=== PATIENT | female | born 1950 | race Hispanic/Latino ===

== ENCOUNTER → 2024-06-02 | Outpatient (CLI) | payer MEDICARE ==
[~2024-06-02] MED LIST: ALBUMIN (HUMAN) 25% 200 ML IV ONE; LOSA25TA41 PO; METF-444 PO; PANT40TA54 PO; SITA100T12 PO
[2024-06-02 08:53] LABS: BASOPHILS # (AUTO) 0.06 K/uL (0.00-0.20); BASOPHILS % (AUTO) 1.1 % (0.0-5.0); EOSINOPHILS # (AUTO) 0.09 K/uL (0.00-0.70); EOSINOPHILS % (AUTO) 1.6 % (0.0-8.0); HEMATOCRIT 31.1 % (36-48); IMMATURE GRANULOCYTE ABSOLUTE 0.02 K/uL (0-1); LYMPHOCYTES # (AUTO) 0.7 K/uL (1.0-4.8); LYMPHOCYTES % (AUTO) 11.8 % (21.0-51.0); MEAN CORPUSCULAR HEMOGLOBIN 30.3 pg (27.0-33.0); MEAN CORPUSCULAR HGB CONC 31.2 g/dL (32.0-36.0); MEAN CORPUSCULAR VOLUME 97.2 fL (79-99); MONOCYTES # (AUTO) 0.6 K/uL (0.1-1.0); MONOCYTES % (AUTO) 11.2 % (3.0-13.0); NEUTROPHILS # (AUTO) 4.2 K/uL (1.8-7.7); NEUTROPHILS % (AUTO) 73.9 % (40.0-77.0); PLATELET COUNT (AUTO) 347 K/uL (130-400); RED CELL DISTRIBUTION WIDTH 14.4 % (11.0-15.5); WHITE BLOOD COUNT (AUTO) 5.7 K/uL (4.8-10.8)
[2024-06-02 09:02] LABS: INR 1.08 (0.85-1.15); PROTHROMBIN TIME 11.6 SEC (9.6-11.6)
[2024-06-02 09:04] LABS: PARTIAL THROMBOPLASTIN TIME 26.1 SEC (26.3-35.5)
[2024-06-02 09:05] LABS: ALBUMIN 2.3 g/dL (3.5-5.0); BILIRUBIN,TOTAL 0.4 mg/dL (0.2-1.0); CREATININE 0.8 mg/dL (0.5-1.0); POTASSIUM 4.3 mmol/L (3.5-5.1); TOTAL PROTEIN, SERUM 6.6 g/dL (6.0-8.3)
[2024-06-02 15:12] LABS: ALBUMIN,BODY FLUID 0.8 g/dL
[2024-06-02 15:22] LABS: BODY FLUID RBC 52 /cu. mm.; BODY FLUID WBC 278 /cu. mm.
[2024-06-02 15:24] LABS: APPEARANCE BODY FLUID CLEAR (CLEAR); COLOR,BODY FLUID YELLOW (LT YELLOW); SPECIMENTYPE,BODY FLUID ASCITES; TOTAL VOLUME,BODY FLUID 11100 mL
[2024-06-02 16:23] LABS: BF LYMPHOCYTE 11 %; BF MACROPHAGE 83; BF OTHER CELLS 1; BF TOTAL CELLS COUNTED 100
== END | disposition home or self-care (01) ==
LOC: RAH 07:43
PROVIDERS: ATTEND Internal Medicine Gastroenterology
DX: R18.8 Other ascites (principal); I10 Essential (primary) hypertension; E78.5 Hyperlipidemia, unspecified; E03.9 Hypothyroidism, unspecified; E11.9 Type 2 diabetes mellitus without complications; M19.90 Unspecified osteoarthritis, unspecified site; K21.9 Gastro-esophageal reflux disease without esophagitis; R19.4 Change in bowel habit; R14.0 Abdominal distension (gaseous); K76.9 Liver disease, unspecified; K58.1 Irritable bowel syndrome with constipation; I85.10 Secondary esophageal varices without bleeding; K44.9 Diaphragmatic hernia without obstruction or gangrene; D50.9 Iron deficiency anemia, unspecified; K64.1 Second degree hemorrhoids; K74.60 Unspecified cirrhosis of liver; Z86.010 Personal history of colon polyps; K92.1 Melena; Z79.82 Long term (current) use of aspirin; Z90.49 Acquired absence of other specified parts of digestive tract; Z90.710 Acquired absence of both cervix and uterus
CPT/HCPCS: 49083; 84157; 80053; 85025; 89051; 85610; 85730; 87071; 87205; 82042; 36415; 88305; 88112; P9046; C1729; 96365

== ENCOUNTER → 2024-06-20 | Outpatient (CLI) | payer MEDICARE ==
[~2024-06-20] MED LIST changes: -ALBUMIN (HUMAN) 25% 200 ML IV ONE
[2024-06-20 11:50] LABS: CREATININE 0.9 mg/dL (0.5-1.0); POTASSIUM 4.5 mmol/L (3.5-5.1)
== END | disposition home or self-care (01) ==
LOC: LAB 11:10
PROVIDERS: ATTEND Internal Medicine Gastroenterology
DX: R18.8 Other ascites (principal)
CPT/HCPCS: 36415; 80048

== ENCOUNTER → 2024-06-26 | Outpatient (CLI) | payer MEDICARE ==
[~2024-06-26] MED LIST changes: +ALBUMIN (HUMAN) 25% 200 ML IV ONE
[2024-06-26 13:18] LABS: ALBUMIN,BODY FLUID 0.9 g/dL
[2024-06-26 13:37] LABS: BODY FLUID RBC 0 /cu. mm.; BODY FLUID WBC 288 /cu. mm.
[2024-06-26 13:42] LABS: APPEARANCE BODY FLUID CLEAR (CLEAR); COLOR,BODY FLUID YELLOW (LT YELLOW); SPECIMENTYPE,BODY FLUID ASCITES; TOTAL VOLUME,BODY FLUID 11000 mL
[2024-06-26 14:30] LABS: BF LYMPHOCYTE 22 %; BF MACROPHAGE 12; BF MESOTHELIAL 49 %; BF MONOCYTE 14 %; BF TOTAL CELLS COUNTED 100
== END | disposition home or self-care (01) ==
LOC: RAH 07:57
PROVIDERS: ATTEND Internal Medicine Gastroenterology
DX: R18.8 Other ascites (principal); I10 Essential (primary) hypertension; E03.9 Hypothyroidism, unspecified; E78.5 Hyperlipidemia, unspecified; E11.9 Type 2 diabetes mellitus without complications; M19.90 Unspecified osteoarthritis, unspecified site; R19.4 Change in bowel habit; K74.60 Unspecified cirrhosis of liver; R14.0 Abdominal distension (gaseous); K85.10 Biliary acute pancreatitis without necrosis or infection; I85.10 Secondary esophageal varices without bleeding; K44.9 Diaphragmatic hernia without obstruction or gangrene; K21.00 Gastro-esophageal reflux disease with esophagitis, without bleeding; D50.9 Iron deficiency anemia, unspecified; K64.1 Second degree hemorrhoids; K92.1 Melena; Z86.010 Personal history of colon polyps; Z90.49 Acquired absence of other specified parts of digestive tract; Z90.710 Acquired absence of both cervix and uterus; Z79.82 Long term (current) use of aspirin; Z79.899 Other long term (current) drug therapy
CPT/HCPCS: 49083; 84157; 89051; 87071; 87076; 87205; 82042; 88305; 88112; P9046; C1729

== ENCOUNTER → 2024-07-10 | Outpatient (CLI) | payer MEDICARE ==
[2024-07-10 07:57] LABS: BASOPHILS # (AUTO) 0.07 K/uL (0.00-0.20); BASOPHILS % (AUTO) 1.2 % (0.0-5.0); EOSINOPHILS # (AUTO) 0.14 K/uL (0.00-0.70); EOSINOPHILS % (AUTO) 2.3 % (0.0-8.0); HEMATOCRIT 28.9 % (36-48); IMMATURE GRANULOCYTE ABSOLUTE 0.04 K/uL (0-1); LYMPHOCYTES # (AUTO) 0.5 K/uL (1.0-4.8); LYMPHOCYTES % (AUTO) 8.1 % (21.0-51.0); MEAN CORPUSCULAR HEMOGLOBIN 29.8 pg (27.0-33.0); MEAN CORPUSCULAR HGB CONC 32.2 g/dL (32.0-36.0); MEAN CORPUSCULAR VOLUME 92.6 fL (79-99); MONOCYTES # (AUTO) 0.6 K/uL (0.1-1.0); MONOCYTES % (AUTO) 9.5 % (3.0-13.0); NEUTROPHILS # (AUTO) 4.7 K/uL (1.8-7.7); NEUTROPHILS % (AUTO) 78.2 % (40.0-77.0); PLATELET COUNT (AUTO) 316 K/uL (130-400); RED BLOOD CELL COUNT(AUTO) 3.12 MIL/uL (4.00-5.50); RED CELL DISTRIBUTION WIDTH 15.1 % (11.0-15.5)
[2024-07-10 08:09] LABS: INR 1.05 (0.85-1.15); PROTHROMBIN TIME 11.3 SEC (9.6-11.6)
[2024-07-10 08:10] LABS: PARTIAL THROMBOPLASTIN TIME 25.8 SEC (26.3-35.5)
[2024-07-10 08:11] LABS: ALBUMIN 2.4 g/dL (3.5-5.0); BILIRUBIN,TOTAL 0.5 mg/dL (0.2-1.0); CREATININE 0.9 mg/dL (0.5-1.0); POTASSIUM 4.6 mmol/L (3.5-5.1); TOTAL PROTEIN, SERUM 6.4 g/dL (6.0-8.3)
[2024-07-10 16:33] LABS: BODY FLUID RBC 307 /cu. mm.; BODY FLUID WBC 175 /cu. mm.
[2024-07-10 16:37] LABS: SPECIMENTYPE,BODY FLUID ASCITES
[2024-07-10 16:38] LABS: APPEARANCE BODY FLUID SLIGHTLY CLOUDY (CLEAR); COLOR,BODY FLUID YELLOW (LT YELLOW); TOTAL VOLUME,BODY FLUID 6700 mL
[2024-07-10 17:31] LABS: BF EOSINOPHIL 1 %; BF LYMPHOCYTE 32 %; BF MACROPHAGE 57; BF TOTAL CELLS COUNTED 100
== END | disposition home or self-care (01) ==
LOC: RAH 07:21
PROVIDERS: ATTEND Internal Medicine Gastroenterology
DX: R18.8 Other ascites (principal); K74.60 Unspecified cirrhosis of liver; I85.10 Secondary esophageal varices without bleeding; R19.4 Change in bowel habit; K58.1 Irritable bowel syndrome with constipation; K64.1 Second degree hemorrhoids; K21.00 Gastro-esophageal reflux disease with esophagitis, without bleeding; K44.9 Diaphragmatic hernia without obstruction or gangrene; D50.9 Iron deficiency anemia, unspecified; I10 Essential (primary) hypertension; E78.5 Hyperlipidemia, unspecified; E03.9 Hypothyroidism, unspecified; E11.9 Type 2 diabetes mellitus without complications; Z90.49 Acquired absence of other specified parts of digestive tract; Z90.710 Acquired absence of both cervix and uterus; Z86.010 Personal history of colon polyps; Z79.82 Long term (current) use of aspirin; Z79.899 Other long term (current) drug therapy
CPT/HCPCS: 49083; 80053; 85025; 89051; 85610; 85730; 36415; P9046; C1729; 96365

== ENCOUNTER → 2024-08-09 | Outpatient (CLI) | payer MEDICARE ==
[2024-08-09 08:28] LABS: BASOPHILS # (AUTO) 0.07 K/uL (0.00-0.20); BASOPHILS % (AUTO) 1.1 % (0.0-5.0); EOSINOPHILS # (AUTO) 0.11 K/uL (0.00-0.70); EOSINOPHILS % (AUTO) 1.7 % (0.0-8.0); HEMATOCRIT 28.5 % (36-48); IMMATURE GRANULOCYTE ABSOLUTE 0.01 K/uL (0-1); LYMPHOCYTES # (AUTO) 0.5 K/uL (1.0-4.8); LYMPHOCYTES % (AUTO) 7.8 % (21.0-51.0); MEAN CORPUSCULAR HEMOGLOBIN 29.2 pg (27.0-33.0); MEAN CORPUSCULAR HGB CONC 31.6 g/dL (32.0-36.0); MEAN CORPUSCULAR VOLUME 92.5 fL (79-99); MONOCYTES # (AUTO) 0.6 K/uL (0.1-1.0); MONOCYTES % (AUTO) 9.3 % (3.0-13.0); NEUTROPHILS # (AUTO) 5.2 K/uL (1.8-7.7); NEUTROPHILS % (AUTO) 79.9 % (40.0-77.0); PLATELET COUNT (AUTO) 357 K/uL (130-400); RED BLOOD CELL COUNT(AUTO) 3.08 MIL/uL (4.00-5.50); RED CELL DISTRIBUTION WIDTH 14.9 % (11.0-15.5); WHITE BLOOD COUNT (AUTO) 6.5 K/uL (4.8-10.8)
[2024-08-09 08:39] LABS: ALBUMIN 2.7 g/dL (3.5-5.0); BILIRUBIN,TOTAL 0.5 mg/dL (0.2-1.0); CREATININE 0.9 mg/dL (0.5-1.0); POTASSIUM 4.6 mmol/L (3.5-5.1)
[2024-08-09 08:49] LABS: INR 1.05 (0.85-1.15); PROTHROMBIN TIME 11.3 SEC (9.6-11.6)
[2024-08-09 08:50] LABS: PARTIAL THROMBOPLASTIN TIME 25.5 SEC (26.3-35.5)
[2024-08-09 15:04] LABS: APPEARANCE BODY FLUID SLIGHTLY CLOUDY (CLEAR); COLOR,BODY FLUID YELLOW (LT YELLOW); SPECIMENTYPE,BODY FLUID ASCITES; TOTAL VOLUME,BODY FLUID 6700 mL
[2024-08-09 15:16] LABS: BODY FLUID RBC 113 /cu. mm.; BODY FLUID WBC 225 /cu. mm.
[2024-08-09 18:17] LABS: BF LYMPHOCYTE 20 %; BF MACROPHAGE 71; BF OTHER CELLS 1; BF TOTAL CELLS COUNTED 100
== END | disposition home or self-care (01) ==
LOC: RAH 07:42
PROVIDERS: ATTEND Internal Medicine Gastroenterology
DX: R18.8 Other ascites (principal); K74.60 Unspecified cirrhosis of liver; I85.10 Secondary esophageal varices without bleeding; R19.4 Change in bowel habit; K58.1 Irritable bowel syndrome with constipation; K64.1 Second degree hemorrhoids; D50.9 Iron deficiency anemia, unspecified; I10 Essential (primary) hypertension; E03.9 Hypothyroidism, unspecified; E78.5 Hyperlipidemia, unspecified; E11.9 Type 2 diabetes mellitus without complications; M19.90 Unspecified osteoarthritis, unspecified site; Z86.010 Personal history of colon polyps; Z90.49 Acquired absence of other specified parts of digestive tract; Z90.710 Acquired absence of both cervix and uterus; Z79.82 Long term (current) use of aspirin; Z79.899 Other long term (current) drug therapy
CPT/HCPCS: 49083; 80053; 85025; 89051; 85610; 85730; 36415; P9046; C1729

== ENCOUNTER 2024-08-18 12:29 | Inpatient (IN) | payer MEDICARE ==
[~2024-08-18] VITALS: Ht 157.5 cm; Wt 58.5 kg
[2024-08-18] VITALS (8 sets, daily range): BP systolic 95–107; BP diastolic 41–57; PULSE 76–99; RESP 18–19; TEMP 98.1–98.3; O2SAT 96–99
[~2024-08-18 12:29] MED LIST changes: -ALBUMIN (HUMAN) 25% 200 ML IV ONE
[2024-08-18 13:13] LABS: BASOPHILS # (AUTO) 0.06 K/uL (0.00-0.20); EOSINOPHILS % (AUTO) 1.6 % (0.0-8.0); HEMATOCRIT 24.4 % (36-48); IMMATURE GRANULOCYTE ABSOLUTE 0.03 K/uL (0-1); LYMPHOCYTES # (AUTO) 0.7 K/uL (1.0-4.8); LYMPHOCYTES % (AUTO) 10.8 % (21.0-51.0); MEAN CORPUSCULAR HEMOGLOBIN 29.1 pg (27.0-33.0); MONOCYTES # (AUTO) 0.6 K/uL (0.1-1.0); MONOCYTES % (AUTO) 10.5 % (3.0-13.0); NEUTROPHILS # (AUTO) 4.6 K/uL (1.8-7.7); NEUTROPHILS % (AUTO) 75.6 % (40.0-77.0); PLATELET COUNT (AUTO) 312 K/uL (130-400); RED BLOOD CELL COUNT(AUTO) 2.68 MIL/uL (4.00-5.50); RED CELL DISTRIBUTION WIDTH 14.8 % (11.0-15.5); WHITE BLOOD COUNT (AUTO) 6.1 K/uL (4.8-10.8)
[2024-08-18 13:20] LABS: CREATININE 0.9 mg/dL (0.5-1.0); POTASSIUM 4.5 mmol/L (3.5-5.1)
[2024-08-18 13:22] LABS: INR 1.03 (0.85-1.15); PROTHROMBIN TIME 11.1 SEC (9.6-11.6)
[2024-08-18 13:23] LABS: PARTIAL THROMBOPLASTIN TIME 24.2 SEC (26.3-35.5)
[2024-08-18 13:25] LABS: ALBUMIN 2.7 g/dL (3.5-5.0); BILIRUBIN,DIRECT 0.1 mg/dL (0.0-0.3); BILIRUBIN,TOTAL 0.3 mg/dL (0.2-1.0); TOTAL PROTEIN, SERUM 6.3 g/dL (6.0-8.3)
[2024-08-18 13:38] LABS: SARS-CoV-2, RNA, NAAT NEGATIVE SARS CoV-2 (NEGATIVE)
[2024-08-18 13:41] LABS: INFLUENZA TYPE A Negative For Type A (NEGATIVE); INFLUENZA TYPE B Negative For Type B (NEGATIVE)
[2024-08-18 14:34] LABS: APPEARANCE,URINE CLEAR (CLEAR); BILIRUBIN,URINE NEGATIVE (NEGATIVE); COLOR,URINE LIGHT-YELLOW (YELLOW); GLUCOSE, URINE (UA) NEGATIVE (NEGATIVE); KETONES,URINE NEGATIVE (NEGATIVE); LEUKOCYTE ESTERASE ,URINE NEGATIVE Leu/uL (NEGATIVE); NITRATE,URINE NEGATIVE (NEGATIVE); OCCULT BLOOD,URINE NEGATIVE (NEGATIVE); PROTEIN,URINE NEGATIVE (NEGATIVE); UROBILINOGEN,URINE 0.2 mg/dL (0.2-1.0)
[2024-08-18 14:36] LABS: ADD UA MICROSCOPIC NO
[2024-08-18] MEDS ORDERED: FERR-82 PO (14:40)
[2024-08-18] MEDS ORDERED: VITA-328 PO (14:40)
[2024-08-18] MEDS ORDERED: FURO20TA4 PO (14:40)
[2024-08-18] MEDS ORDERED: SPIR25TA6 PO (14:40)
[2024-08-18] MEDS ORDERED: LOSA25TA41 PO (14:40)
[2024-08-18] MEDS ORDERED: ASPI-1197 PO (14:40)
[2024-08-18] MEDS ORDERED: METO5TAB2 PO (14:40)
[2024-08-18] MEDS ORDERED: LEVO50CA4 PO (14:40)
[2024-08-18] MEDS ORDERED: OMEP40CA21 PO (14:40)
[2024-08-18] MEDS: 0.9%NACL 1000ML 1,000 ML IV ONE (14:58)
[2024-08-18] MEDS ORDERED: cefTRIAXone 1G VIAL 1 GM in 0.9%NACL 50ML 50 ML IV SCH (15:30)
[2024-08-18] MEDS ORDERED: LACTULOSE 20 GM/30 ML UDCUP PO PRN (15:30)
[2024-08-18] MEDS ORDERED: acetaMINOPHEN WITH coDEINE 1 TAB TAB PO PRN (15:30)
[2024-08-18] MEDS ORDERED: DiphenhydrAMINE HCL 25 MG CAPSULE PO PRN (15:30)
[2024-08-18] MEDS ORDERED: guaiFENesin-DM 200/20MG 10ML PO PRN (15:30)
[2024-08-18] MEDS ORDERED: NITROGLYCERIN 0.4 MG SL TAB SL PRN (15:30)
[2024-08-18] MEDS ORDERED: MAG/ALUM/SIMETH 30 ML UDCUP PO PRN (15:30)
[2024-08-18] MEDS ORDERED: DEXTROSE 50%-WATER 50 ML DISP.SYRIN IV PRN (15:30)
[2024-08-18] MEDS ORDERED: GLUCAGON 1MG KIT 1 MG ML IM PRN (15:30)
[2024-08-18] MEDS ORDERED: hydrALAZine 20MG/ML VIAL IV PRN (15:30)
[2024-08-18] MEDS ORDERED: acetaMINOPHEN 325 MG TAB PO PRN (15:30)
[2024-08-18] MEDS ORDERED: ondanSETRON 4MG INJ IV PRN (15:30)
[2024-08-18] MEDS: cefTRIAXone 1G VIAL IVPB SCH (15:59)
[2024-08-18] MEDS: AZITHROMYCIN 500MG+NS 250ML 250 ML IV SCH (16:22)
[2024-08-18] MEDS: 0.9%NACL 1000ML 1,000 ML IV SCH (16:23)
[2024-08-18] MEDS: INSULIN humuLIN R 100 UNIT/ML 3ML SQ SCH (16:29)
[2024-08-18 17:01] LABS: HEMOGLOBIN A1C 4.7 % (4.0-6.0)
[2024-08-18] MEDS: IpraTROPium/alBUTERol SULFATE 3 ML SOLUTION IH SCH (19:26)
[2024-08-18] MEDS: PANTOPrazole 40 MG/VIAL IVP SCH (19:56)
[2024-08-18 21:17] LABS: HEMATOCRIT 23.3 % (36-48)
[2024-08-19] VITALS (12 sets, daily range): BP systolic 92–117; BP diastolic 48–55; PULSE 74–109; RESP 18–20; TEMP 97.9–98.5; O2SAT 98–99
[2024-08-19 05:29] LABS: HEMATOCRIT 21.8 % (36-48)
[2024-08-19 07:47] LABS: BASOPHILS # (AUTO) 0.05 K/uL (0.00-0.20); BASOPHILS % (AUTO) 1.2 % (0.0-5.0); EOSINOPHILS # (AUTO) 0.14 K/uL (0.00-0.70); EOSINOPHILS % (AUTO) 3.2 % (0.0-8.0); HEMATOCRIT 21.9 % (36-48); IMMATURE GRANULOCYTE ABSOLUTE 0.01 K/uL (0-1); LYMPHOCYTES # (AUTO) 0.5 K/uL (1.0-4.8); LYMPHOCYTES % (AUTO) 11.8 % (21.0-51.0); MEAN CORPUSCULAR HEMOGLOBIN 29.4 pg (27.0-33.0); MEAN CORPUSCULAR HGB CONC 31.5 g/dL (32.0-36.0); MEAN CORPUSCULAR VOLUME 93.2 fL (79-99); MONOCYTES # (AUTO) 0.5 K/uL (0.1-1.0); MONOCYTES % (AUTO) 11.1 % (3.0-13.0); NEUTROPHILS # (AUTO) 3.1 K/uL (1.8-7.7); NEUTROPHILS % (AUTO) 72.5 % (40.0-77.0); PLATELET COUNT (AUTO) 266 K/uL (130-400); RED BLOOD CELL COUNT(AUTO) 2.35 MIL/uL (4.00-5.50); WHITE BLOOD COUNT (AUTO) 4.3 K/uL (4.8-10.8)
[2024-08-19 07:54] LABS: MAGNESIUM 1.9 mg/dL (1.80-2.40); POTASSIUM 4.6 mmol/L (3.5-5.1)
[2024-08-19] MEDS: VITAMIN B COMPLEX 1 CAPSULE PO SCH (08:55)
[2024-08-19] MEDS: FERROUS SULFATE 325 MG TABLET.DR PO SCH (08:55)
[2024-08-19] MEDS: MAGNESIUM 2GM PREMIX 50ML 50 ML IV ONE (08:55)
[2024-08-19] MEDS: metoCLOPRAmide 5 MG TABLET PO SCH (08:55)
[2024-08-19] MEDS: levoTHYROxine 50 MCG TABLET PO SCH (08:55)
[2024-08-19 09:35] LABS: HEMATOCRIT 24.1 % (36-48)
[2024-08-19 21:45] LABS: HEMATOCRIT 23.3 % (36-48)
[2024-08-20] VITALS (16 sets, daily range): BP systolic 102–122; BP diastolic 49–70; PULSE 85–103; RESP 17–20; TEMP 97.8–98.7; O2SAT 97–99
[2024-08-20 01:58] LABS: HEMATOCRIT 23.6 % (36-48)
[2024-08-20 05:18] LABS: CREATININE 0.9 mg/dL (0.5-1.0); POTASSIUM 4.5 mmol/L (3.5-5.1)
[2024-08-20 05:19] LABS: % IRON SATURATION 17.3 % (22-44)
[2024-08-20 05:48] LABS: BASOPHILS # (AUTO) 0.06 K/uL (0.00-0.20); BASOPHILS % (AUTO) 1.2 % (0.0-5.0); EOSINOPHILS % (AUTO) 3.9 % (0.0-8.0); IMMATURE GRANULOCYTE ABSOLUTE 0.02 K/uL (0-1); LYMPHOCYTES # (AUTO) 0.6 K/uL (1.0-4.8); MEAN CORPUSCULAR HEMOGLOBIN 29.2 pg (27.0-33.0); MEAN CORPUSCULAR HGB CONC 31.4 g/dL (32.0-36.0); MEAN CORPUSCULAR VOLUME 93.2 fL (79-99); MONOCYTES # (AUTO) 0.6 K/uL (0.1-1.0); MONOCYTES % (AUTO) 12.2 % (3.0-13.0); NEUTROPHILS # (AUTO) 3.7 K/uL (1.8-7.7); NEUTROPHILS % (AUTO) 71.3 % (40.0-77.0); PLATELET COUNT (AUTO) 252 K/uL (130-400); RED BLOOD CELL COUNT(AUTO) 2.36 MIL/uL (4.00-5.50); RED CELL DISTRIBUTION WIDTH 15.3 % (11.0-15.5); WHITE BLOOD COUNT (AUTO) 5.2 K/uL (4.8-10.8)
[2024-08-20] MEDS: SODIUM CHLORIDE 3% FOR INHALATION 4 ML/AMP VIAL.NEB IH ONE ×3 (07:21→18:51)
[2024-08-20] MEDS ORDERED: SOD FERRIC GLUC COMPLEX/SUC 125 MG in 0.9%NACL 100ML 100 ML IV SCH (11:30)
[2024-08-20] MEDS: [UNRECOGNIZED DRUG - REMARK] MISC SCH (13:00)
[2024-08-20] MEDS ORDERED: COMPOUND IV MISC 1 EACH IVSOLN MISC PRN (15:00)
[2024-08-20] MEDS: LOPERAMIDE HCL 2 MG CAP PO PRN (16:43)
[2024-08-20] MEDS: SOD FERRIC GLUC COMPLEX/SUC 125 MG in 0.9%NACL 100ML 100 ML IV SCH (20:20)
[2024-08-21] VITALS (11 sets, daily range): BP systolic 103–122; BP diastolic 48–68; PULSE 85–101; RESP 16–18; TEMP 97.8–98.9; O2SAT 95–98
[2024-08-21] MEDS ORDERED: PEG 3350/NA SULF,BICARB,CL/KCL 4000 ML SOLN PO ONE (16:00)
[2024-08-22] VITALS (30 sets, daily range): BP systolic 102–148; BP diastolic 54–89; PULSE 67–99; RESP 16–18; TEMP 97.3–98.3; O2SAT 98–99
[2024-08-22] MEDS: levoTHYROxine 50 MCG TABLET PO SCH (04:54)
[2024-08-22 05:12] LABS: BASOPHILS # (AUTO) 0.07 K/uL (0.00-0.20); BASOPHILS % (AUTO) 1.4 % (0.0-5.0); EOSINOPHILS # (AUTO) 0.29 K/uL (0.00-0.70); EOSINOPHILS % (AUTO) 5.9 % (0.0-8.0); HEMATOCRIT 26.3 % (36-48); IMMATURE GRANULOCYTE ABSOLUTE 0.02 K/uL (0-1); LYMPHOCYTES # (AUTO) 0.6 K/uL (1.0-4.8); LYMPHOCYTES % (AUTO) 11.6 % (21.0-51.0); MEAN CORPUSCULAR HEMOGLOBIN 28.6 pg (27.0-33.0); MEAN CORPUSCULAR HGB CONC 31.2 g/dL (32.0-36.0); MEAN CORPUSCULAR VOLUME 91.6 fL (79-99); MONOCYTES # (AUTO) 0.6 K/uL (0.1-1.0); MONOCYTES % (AUTO) 12.2 % (3.0-13.0); NEUTROPHILS # (AUTO) 3.4 K/uL (1.8-7.7); NEUTROPHILS % (AUTO) 68.5 % (40.0-77.0); PLATELET COUNT (AUTO) 250 K/uL (130-400); RED BLOOD CELL COUNT(AUTO) 2.87 MIL/uL (4.00-5.50); RED CELL DISTRIBUTION WIDTH 17.1 % (11.0-15.5); WHITE BLOOD COUNT (AUTO) 4.9 K/uL (4.8-10.8)
[2024-08-22 05:34] LABS: CREATININE 0.8 mg/dL (0.5-1.0)
[2024-08-22] MEDS ORDERED: proPOFol 10 MG/ML 20ML VIAL IV ONE (12:23)
[2024-08-22] MEDS ORDERED: LIDOCAINE PF 100MG/5ML (2%) SYRINGE 5ML ONE (12:23)
[2024-08-22] MEDS: DEXTROSE 50%-WATER 50 ML DISP.SYRIN IV ONE (13:25)
[2024-08-22] MEDS ORDERED: SIMETHICONE 40 MG/0.6 ML ML PO PRN (14:30)
[2024-08-22] MEDS: SIMETHICONE 80 MG TAB.CHEW PO PRN (14:39)
[2024-08-22] MEDS: BENZOCAINE/MENTH/CETYLPYRD CL 1 EACH LOZENGE MM PRN (14:39)
[2024-08-22] MEDS: hydroCORTISONE 25 MG SUPPOSITORY PR SCH (20:15)
[2024-08-23] VITALS (7 sets, daily range): BP systolic 112–129; BP diastolic 59–74; PULSE 81–94; RESP 16–18; TEMP 98.1–98.7; O2SAT 97–98
[2024-08-23 06:04] LABS: HEMATOCRIT 27.1 % (36-48); MEAN CORPUSCULAR HEMOGLOBIN 27.8 pg (27.0-33.0); MEAN CORPUSCULAR HGB CONC 30.3 g/dL (32.0-36.0); MEAN CORPUSCULAR VOLUME 91.9 fL (79-99); PLATELET COUNT (AUTO) 284 K/uL (130-400); RED BLOOD CELL COUNT(AUTO) 2.95 MIL/uL (4.00-5.50); RED CELL DISTRIBUTION WIDTH 17.2 % (11.0-15.5); WHITE BLOOD COUNT (AUTO) 5.6 K/uL (4.8-10.8)
[2024-08-23 06:20] LABS: ALBUMIN 2.3 g/dL (3.5-5.0); BILIRUBIN,TOTAL 0.4 mg/dL (0.2-1.0); CREATININE 0.9 mg/dL (0.5-1.0); POTASSIUM 4.1 mmol/L (3.5-5.1); TOTAL PROTEIN, SERUM 5.8 g/dL (6.0-8.3)
[2024-08-23] MEDS ORDERED: LACT PO (14:31)
[2024-08-23] MEDS ORDERED: PANT40TA55 PO (14:31)
== END 2024-08-23 15:40 | disposition home or self-care (01) | DRG 432 ==
LOC: EDH 12:29 → EDHIP 15:29 → UNDOADMIN 15:29 → 3CH 17:55
PROVIDERS: ADMIT Internal Medicine; ATTEND Internal Medicine
PROC: 0W3P8ZZ Control Bleeding in Gastrointestinal Tract, Via Natural or Artificial Opening Endoscopic (ICD-10-PCS; 2024-08-18)
PROC: 0DJD8ZZ Inspection of Lower Intestinal Tract, Via Natural or Artificial Opening Endoscopic (ICD-10-PCS; 2024-08-18)
PROC: 30233N1 Transfusion of Nonautologous Red Blood Cells into Peripheral Vein, Percutaneous Approach (ICD-10-PCS; principal; 2024-08-20)
PROC: 0DB68ZX Excision of Stomach, Via Natural or Artificial Opening Endoscopic, Diagnostic (ICD-10-PCS; 2024-08-22)
PROC: 06L38CZ Occlusion of Esophageal Vein with Extraluminal Device, Via Natural or Artificial Opening Endoscopic (ICD-10-PCS; 2024-08-22)
DX: K74.60 Unspecified cirrhosis of liver (principal); J18.9 Pneumonia, unspecified organism; I85.10 Secondary esophageal varices without bleeding; K76.6 Portal hypertension; E87.1 Hypo-osmolality and hyponatremia; N17.9 Acute kidney failure, unspecified; K64.9 Unspecified hemorrhoids; D50.9 Iron deficiency anemia, unspecified; K58.9 Irritable bowel syndrome, unspecified; I12.9 Hypertensive chronic kidney disease with stage 1 through stage 4 chronic kidney disease, or unspecified chronic kidney disease; E11.22 Type 2 diabetes mellitus with diabetic chronic kidney disease; N18.9 Chronic kidney disease, unspecified; K64.8 Other hemorrhoids; K31.89 Other diseases of stomach and duodenum; K59.00 Constipation, unspecified; Z90.710 Acquired absence of both cervix and uterus; Z90.49 Acquired absence of other specified parts of digestive tract
CPT/HCPCS: 36415; 36430; 43233; 43239; 43244; 71045; 76700; 80048; 80053; 80076; 81003; 82270; 82948; 83036; 83540; 83550; 83735; 83880; 84145; 84300; 84484; 85014; 85018; 85025; 85027; 85610; 85730; 86850; 86900; 86901; 86923; 87040; 87635; 87804; 88305; 88312; 93005; 94640; 94664; 96360; A4606; G0378; J0456; J0696; J2002; J2470; J2704; J2916; J3475; J7030; J7070; P9016; A4215; A4222; A4223; A4620; J3490

== ENCOUNTER → 2024-08-30 | Outpatient (CLI) | payer MEDICARE ==
[~2024-08-30] MED LIST changes: +ALBUMIN (HUMAN) 25% 200 ML IV ONE; +ASPI-1197 PO; +FERR-82 PO; +FURO20TA4 PO; +LACT PO; +LEVO50CA4 PO; -LOSA25TA41 PO; -METF-444 PO; +METO5TAB2 PO; -PANT40TA54 PO; +PANT40TA55 PO; -SITA100T12 PO; +SPIR25TA6 PO; +VITA-328 PO
[2024-08-30 15:14] LABS: BODY FLUID RBC 600 /cu. mm.; BODY FLUID WBC 159 /cu. mm.
[2024-08-30 15:21] LABS: APPEARANCE BODY FLUID SLIGHTLY CLOUDY (CLEAR); COLOR,BODY FLUID YELLOW (LT YELLOW); SPECIMENTYPE,BODY FLUID ASCITES; TOTAL VOLUME,BODY FLUID 8000 mL
[2024-08-30 16:44] LABS: BF EOSINOPHIL 1 %; BF LYMPHOCYTE 68 %; BF MACROPHAGE 11; BF OTHER CELLS 2; BF TOTAL CELLS COUNTED 100
== END | disposition home or self-care (01) ==
LOC: CANPRECLI → RAH 09:35
PROVIDERS: ATTEND Internal Medicine Gastroenterology
DX: R18.8 Other ascites (principal); K74.60 Unspecified cirrhosis of liver; I85.10 Secondary esophageal varices without bleeding; R19.4 Change in bowel habit; K58.1 Irritable bowel syndrome with constipation; K64.1 Second degree hemorrhoids; R11.0 Nausea; K21.00 Gastro-esophageal reflux disease with esophagitis, without bleeding; K44.9 Diaphragmatic hernia without obstruction or gangrene; D50.9 Iron deficiency anemia, unspecified; Z86.0100 Personal history of colon polyps, unspecified; Z79.01 Long term (current) use of anticoagulants; Z90.710 Acquired absence of both cervix and uterus; Z98.890 Other specified postprocedural states; Z79.899 Other long term (current) drug therapy
CPT/HCPCS: 49083; 89051; P9046; C1729

== ENCOUNTER → 2024-09-07 | Outpatient (CLI) | payer MEDICARE ==
[2024-09-07 14:36] LABS: APPEARANCE BODY FLUID CLEAR (CLEAR); COLOR,BODY FLUID YELLOW (LT YELLOW); SPECIMENTYPE,BODY FLUID ASCITES; TOTAL VOLUME,BODY FLUID 6500 mL
[2024-09-07 14:37] LABS: BODY FLUID RBC 111 /cu. mm.; BODY FLUID WBC 185 /cu. mm.
[2024-09-07 15:46] LABS: BF LYMPHOCYTE 54 %; BF MACROPHAGE 24; BF MONOCYTE 3 %; BF TOTAL CELLS COUNTED 100
== END | disposition home or self-care (01) ==
LOC: CANPRECLI → RAH 08:17
PROVIDERS: ATTEND Internal Medicine Gastroenterology
DX: R18.8 Other ascites (principal)
CPT/HCPCS: 49083; 89051; P9046; C1729; 96365

== ENCOUNTER → 2024-09-18 | Outpatient (CLI) | payer MEDICARE ==
[2024-09-18 09:16] LABS: BASOPHILS # (AUTO) 0.06 K/uL (0.00-0.20); BASOPHILS % (AUTO) 1.1 % (0.0-5.0); EOSINOPHILS # (AUTO) 0.15 K/uL (0.00-0.70); EOSINOPHILS % (AUTO) 2.7 % (0.0-8.0); HEMATOCRIT 27.2 % (36-48); IMMATURE GRANULOCYTE ABSOLUTE 0.02 K/uL (0-1); LYMPHOCYTES # (AUTO) 0.5 K/uL (1.0-4.8); MEAN CORPUSCULAR HEMOGLOBIN 29.3 pg (27.0-33.0); MEAN CORPUSCULAR HGB CONC 30.9 g/dL (32.0-36.0); MEAN CORPUSCULAR VOLUME 94.8 fL (79-99); MONOCYTES # (AUTO) 0.6 K/uL (0.1-1.0); MONOCYTES % (AUTO) 10.3 % (3.0-13.0); NEUTROPHILS # (AUTO) 4.4 K/uL (1.8-7.7); NEUTROPHILS % (AUTO) 77.5 % (40.0-77.0); PLATELET COUNT (AUTO) 249 K/uL (130-400); RED BLOOD CELL COUNT(AUTO) 2.87 MIL/uL (4.00-5.50); RED CELL DISTRIBUTION WIDTH 16.6 % (11.0-15.5); WHITE BLOOD COUNT (AUTO) 5.6 K/uL (4.8-10.8)
[2024-09-18 09:32] LABS: INR 1.04 (0.85-1.15); PROTHROMBIN TIME 11.2 SEC (9.6-11.6)
[2024-09-18 09:33] LABS: PARTIAL THROMBOPLASTIN TIME 24.5 SEC (26.3-35.5)
[2024-09-18 09:34] LABS: ALBUMIN 2.6 g/dL (3.5-5.0); BILIRUBIN,TOTAL 0.4 mg/dL (0.2-1.0); CREATININE 0.9 mg/dL (0.5-1.0); POTASSIUM 4.1 mmol/L (3.5-5.1); TOTAL PROTEIN, SERUM 6.6 g/dL (6.0-8.3)
[2024-09-18 14:22] LABS: BODY FLUID RBC 101 /cu. mm.; BODY FLUID WBC 111 /cu. mm.
[2024-09-18 16:20] LABS: APPEARANCE BODY FLUID SLIGHTLY CLOUDY (CLEAR); COLOR,BODY FLUID YELLOW (LT YELLOW); SPECIMENTYPE,BODY FLUID ASCITES; TOTAL VOLUME,BODY FLUID 4200 mL
[2024-09-18 19:45] LABS: BF EOSINOPHIL 1 %; BF LYMPHOCYTE 52 %; BF MACROPHAGE 30; BF MONOCYTE 6 %; BF OTHER CELLS 1; BF TOTAL CELLS COUNTED 100
== END | disposition home or self-care (01) ==
LOC: RAH 07:39
PROVIDERS: ATTEND Internal Medicine Gastroenterology
DX: R18.8 Other ascites (principal); K74.60 Unspecified cirrhosis of liver; I85.10 Secondary esophageal varices without bleeding; R19.4 Change in bowel habit; K58.1 Irritable bowel syndrome with constipation; K64.1 Second degree hemorrhoids; K21.00 Gastro-esophageal reflux disease with esophagitis, without bleeding; K44.9 Diaphragmatic hernia without obstruction or gangrene; D50.9 Iron deficiency anemia, unspecified; Z79.82 Long term (current) use of aspirin; Z86.0100 Personal history of colon polyps, unspecified; Z90.710 Acquired absence of both cervix and uterus; Z79.899 Other long term (current) drug therapy
CPT/HCPCS: 49083; 80053; 85025; 89051; 85610; 85730; 36415; P9046; C1729; 96365

== ENCOUNTER → 2024-10-25 | Outpatient (CLI) | payer MEDICARE ==
[~2024-10-25] MED LIST changes: -ALBUMIN (HUMAN) 25% 200 ML IV ONE
--- NOTE | 2024-10-26 10:28 | HMCSR ---
APPROVED REPORT EXAM: Two-dimensional and M-mode echocardiogram with Doppler and color Doppler. INDICATION ICD: r06.09,r94.31, r60.9 RISK FACTORS Hypertension Hyperlipidemia Diabetes 2D Dimensions RVDd4.1 cmLVEF(%)51.0 (>50%)LVED Vol(simp.)81.0 mL IVSd1.0 (0.7-1.1cm)FS(%)26 %LVES Vol(simp.)37.0 mL LVDd3.9 (3.8-5.6cm)LA (2D)4.0 (1.6-4.0cm)LVEF(%, simp.)54 % PWd1.0 (0.7-1.1cm)Ao Root(2D)2.7 (2.0-3.7cm)LA ESV INDEX (BP)64.27 mL/m2 LVDs2.9 (2.5-4.0cm)LVOT diam2.0 (1.8-2.4cm) Deformation Strain Apical 4-23.1 % Apical 2-18.5 % Apical 3-21.0 % Global Strain-20.8 % Aortic Valve AoV Vmax1.6 m/Arielle Peak GR10.4 mmHgLVOT Vmax1.4 m/s AoV VTI0.4 mAo Mean GR6.2 mmHgLVOT VTI0.36 m WHITNEY (VMAX)3.1 cm2Al P1/2T369 msAVA (VTI) 3.1 cm2 Mitral Valve MV E Oriy865.8 cm/sDECEL Lfgu838 msMV Peak GR9 mmHg MV A Lrrs587.3 cm/sP 1/2 T89 msMV Mean GR4 mmHg E/A ratio1.0MVA (PHT)2.5 cm2MVA (VTI)2.4 cm2 MR Max PG113 mmHgMR Mean PG75 mmHgMR WNA490 cm2 TDI E/E' Ftdjnz34.9E/E' Pvtegqa50.6 Pulmonary Valve PV Vmax0.8 m/sPV VTI0.21 mPV Mean GR2 mmHg PV Peak GR2.7 mmHgPI End Aliya. Kwan 0.8 cm/s Tricuspid Valve TR Vmax2.7 m/sRAP (EST) 8 zvKjDQGJ54.9 mmHg TR Peak GR29.9 mmHg Left Ventricle Left ventricular cavity size is normal. There is normal LV segmental wall motion. There is borderline concentric left ventricular hypertrophy. LVEF is 50-55%. GLS rate is -20.8%. Stage II diastolic dysf unction. Right Ventricle The right ventricle is borderline dilated. The right ventricular systolic function is normal. Atria The left atrium is severely dilated. The right atrium is moderately dilated. Aortic Valve Aortic valve is trileaflet. The aortic valve is mildly thickened but opens well. Trace to mild aortic regurgitation. There is no aortic valvular stenosis. Mitral Valve Mitral annular calcification is moderate. The mitral valve is mildly thickened but opens well. Mitral regurgitation is mild. Calculated mitral valve area is 2.4 cm2 with maximum pressure gradient of 9 m mHg and mean pressure gradient of 4 mmHg. Tricuspid Valve The tricuspid valve leaflets appear normal. There is mild tricuspid regurgitation. Right ventricular systolic pressure is estimated at 30-40 mmHg. Pulmonic Valve Pulmonic valve is not well visualized. There is no pulmonic valvular regurgitation. Great Vessels The aortic root is normal in size. IVC is not well visualized. Pericardium No pericardial effusion. Conclusion LVEF is 50-55%. GLS rate is -20.8%. There is normal LV segmental wall motion. Stage II diastolic dysfunction. The left atrium is severely dilated. Aortic valve is trileaflet. The aortic valve is mildly thickened but opens well. Trace to mild aortic regurgitation. Calculated mitral valve area is 2.4 cm2 with maximum pressure gradient of 9 mmHg and mean pressure gr adient of 4 mmHg. No pericardial effusion. The aortic root is normal in size.
== END | disposition home or self-care (01) ==
LOC: SHCH 13:10
PROVIDERS: ATTEND Internal Medicine Cardiovascular Disease
DX: I08.3 Combined rheumatic disorders of mitral, aortic and tricuspid valves (principal); I11.9 Hypertensive heart disease without heart failure; R94.31 Abnormal electrocardiogram [ECG] [EKG]; R06.09 Other forms of dyspnea; R60.9 Edema, unspecified; E11.9 Type 2 diabetes mellitus without complications; E78.5 Hyperlipidemia, unspecified
CPT/HCPCS: 93306; 93356

== ENCOUNTER → 2024-11-14 | Outpatient (CLI) | payer MEDICARE ==
[~2024-11-14] MED LIST changes: +ALBUMIN HUMAN 25% 200 ML IV ONE
--- NOTE | 2024-11-14 09:10 | NUR ---
U/S GD PARACENTESIS TOLERATED PROCEDURE. PERFORMED BY DR Fuentes ARCE. 9.0 LITERS OF YELLOW CLOUDY FLUID REMOVED. PUNCTURE SITE TO RLQ. SPECIMEN SENT TO LAB. ALBUMIN 25% 50 GRAMS GIVEN IV. END OF PROCEDURE AT 0850. DRESSING DRY AND INTACT. NO BLEEDING NOTED. DISCHARGE INSTRUCTIONS GIVEN. VERBALIZED UNDERSTANDING. TIMOTEO PAIN. DISCHARGE VIA WHEELCHAIR. DENIES PAIN. A&O.
--- NOTE | 2024-11-14 09:32 | HMCIMG ---
ULTRASOUND GUIDED PARACENTESIS: INDICATION: Ascites TECHNIQUE: Informed consent was obtained. Timeout performed. All elements of maximal sterile barrier technique, including hand hygiene and cutaneous antisepsis were used. Patient was placed supine. Right lower quadrant was prepped and draped in sterile fashion. Local anesthesia was applied. Then, under ultrasound guidance, a 5F centesis needle was advanced through the abdominal wall and into a pocket of fluid in the peritoneum. It yielded 9.0 L of fluid. The catheter was removed and sterile dressing applied. Blood pressure monitoring was performed during the procedure. Complications: None Blood loss: <5 mL. IMPRESSION: Successful ultrasound guided paracentesis.
[2024-11-14 13:22] LABS: APPEARANCE BODY FLUID CLEAR (CLEAR); COLOR,BODY FLUID YELLOW (LT YELLOW); SPECIMENTYPE,BODY FLUID ASCITES; TOTAL VOLUME,BODY FLUID 9000 mL
[2024-11-14 13:23] LABS: BODY FLUID RBC 0 /cu. mm.; BODY FLUID WBC 101 /cu. mm.
[2024-11-14 14:07] LABS: BF LYMPHOCYTE 31 %; BF MESOTHELIAL 31 %; BF MONOCYTE 29 %; BF TOTAL CELLS COUNTED 100
== END | disposition home or self-care (01) ==
LOC: RAH 07:46
PROVIDERS: ATTEND Internal Medicine
DX: R18.8 Other ascites (principal); K74.60 Unspecified cirrhosis of liver; I85.10 Secondary esophageal varices without bleeding; R19.4 Change in bowel habit; K58.1 Irritable bowel syndrome with constipation; K64.1 Second degree hemorrhoids; K44.9 Diaphragmatic hernia without obstruction or gangrene; Z86.0100 Personal history of colon polyps, unspecified; K21.00 Gastro-esophageal reflux disease with esophagitis, without bleeding; D50.9 Iron deficiency anemia, unspecified; I10 Essential (primary) hypertension; E78.5 Hyperlipidemia, unspecified; E03.9 Hypothyroidism, unspecified; E11.9 Type 2 diabetes mellitus without complications; M19.90 Unspecified osteoarthritis, unspecified site; Z90.49 Acquired absence of other specified parts of digestive tract; Z90.710 Acquired absence of both cervix and uterus; Z79.82 Long term (current) use of aspirin; Z79.899 Other long term (current) drug therapy
CPT/HCPCS: 49083; 89051; P9046; C1729; 96365

== ENCOUNTER → 2024-11-29 | Outpatient (CLI) | payer MEDICARE ==
--- NOTE | 2024-11-29 10:00 | NUR ---
U/S GD PARACENTESIS PROCEDURE PERFORMED BY DR Ara SHERWOOD. PUNCTURE SITE RLQ AND PATIENT TOLERATED PROCEDURE WELL. TOTAL REMOVED 7 LITERS OF CLOUDY YELLOW FLUID. ALBUMIN 25% 50 GRAMS IV GIVEN DURING PROCEDURE. SPECIMEN SENT TO LAB. END OF PROCEDURE AT 09. CATHETER REMOVED AND DRESSING APPLIED. NO BLEEDING NOTED. DISCHARGE INSTRUCTIONS GIVEN TO PATIENT AND VERBALIZED UNDERSTANDING. DISCHARGED VIA W/C AT 1000. AAO X3 WITH NO C/O PAIN.
--- NOTE | 2024-11-29 11:39 | HMCIMG ---
US ABDOMINAL PARACENTESIS IR HISTORY: Ascites COMPARISON: None TECHNIQUE: Informed consent was obtained. Risks and benefits were explained to the patient. A timeout was performed. Patient was prepped and draped in a sterile fashion. Local anesthetics was given as required. Under ultrasound guidance, ascites fluid was localized. Paracentesis was performed. FINDINGS: 7 L of yellowish fluid was aspirated. Less than 2 cc blood loss is noted. Patient tolerated procedure without complication. Patient left the department in good condition. IMPRESSION: 1. Uncomplicated ultrasound guidance paracentesis.
[2024-11-29 14:18] LABS: BODY FLUID RBC 27 /cu. mm.; BODY FLUID WBC 82 /cu. mm.; SPECIMENTYPE,BODY FLUID ASCITES
[2024-11-29 14:19] LABS: APPEARANCE BODY FLUID CLEAR (CLEAR); COLOR,BODY FLUID LT YELLOW (LT YELLOW); TOTAL VOLUME,BODY FLUID 7000 mL
[2024-11-29 14:24] LABS: BF LYMPHOCYTE 42 %; BF MACROPHAGE 17; BF MESOTHELIAL 4 %; BF TOTAL CELLS COUNTED 100
== END | disposition home or self-care (01) ==
LOC: RAH 07:42
PROVIDERS: ATTEND Internal Medicine
DX: R18.8 Other ascites (principal); E78.5 Hyperlipidemia, unspecified; I10 Essential (primary) hypertension; K74.60 Unspecified cirrhosis of liver; I85.00 Esophageal varices without bleeding; D50.9 Iron deficiency anemia, unspecified; E03.9 Hypothyroidism, unspecified; E11.9 Type 2 diabetes mellitus without complications; D64.9 Anemia, unspecified; K21.9 Gastro-esophageal reflux disease without esophagitis; Z79.82 Long term (current) use of aspirin; Z79.899 Other long term (current) drug therapy; Z90.49 Acquired absence of other specified parts of digestive tract; Z98.890 Other specified postprocedural states
CPT/HCPCS: 49083; 89051; P9046; C1729

== ENCOUNTER → 2024-12-13 | Outpatient (CLI) | payer MEDICARE ==
[2024-12-13 13:28] LABS: BASOPHILS # (AUTO) 0.04 K/uL (0.00-0.20); BASOPHILS % (AUTO) 0.8 % (0.0-5.0); EOSINOPHILS # (AUTO) 0.17 K/uL (0.00-0.70); EOSINOPHILS % (AUTO) 3.2 % (0.0-8.0); HEMATOCRIT 25.4 % (36-48); IMMATURE GRANULOCYTE ABSOLUTE 0.02 K/uL (0-1); LYMPHOCYTES # (AUTO) 0.5 K/uL (1.0-4.8); LYMPHOCYTES % (AUTO) 9.5 % (21.0-51.0); MEAN CORPUSCULAR HEMOGLOBIN 23.8 pg (27.0-33.0); MEAN CORPUSCULAR HGB CONC 28.7 g/dL (32.0-36.0); MEAN CORPUSCULAR VOLUME 82.7 fL (79-99); MONOCYTES # (AUTO) 0.6 K/uL (0.1-1.0); MONOCYTES % (AUTO) 11.6 % (3.0-13.0); NEUTROPHILS # (AUTO) 3.9 K/uL (1.8-7.7); NEUTROPHILS % (AUTO) 74.5 % (40.0-77.0); PLATELET COUNT (AUTO) 303 K/uL (130-400); RED BLOOD CELL COUNT(AUTO) 3.07 MIL/uL (4.00-5.50); RED CELL DISTRIBUTION WIDTH 18.5 % (11.0-15.5); WHITE BLOOD COUNT (AUTO) 5.3 K/uL (4.8-10.8)
[2024-12-13 13:37] LABS: INR 1.04 (0.85-1.15); PROTHROMBIN TIME 11.6 SEC (9.6-11.6)
[2024-12-13 13:38] LABS: PARTIAL THROMBOPLASTIN TIME 25.5 SEC (26.3-35.5)
[2024-12-13 13:40] LABS: ALBUMIN 2.4 g/dL (3.5-5.0); BILIRUBIN,TOTAL 0.2 mg/dL (0.2-1.0); CREATININE 0.9 mg/dL (0.5-1.0); POTASSIUM 4.1 mmol/L (3.5-5.1); TOTAL PROTEIN, SERUM 6.4 g/dL (6.0-8.3)
--- NOTE | 2024-12-13 13:50 | NUR ---
U/S GD PARACENTESIS TOLERATED PROCEDURE. PERFORMED BY DR Ara SHERWOOD. 7.4 LITERS OF YELLOW CLOUDY ASCITES FLUID REMOVED AND SENT TO LAB. ALBUMIN 25% 50 GRAMS GIVEN IV. PUNCTURE SITE TO RLQ. END OF PROCEDURE AT 1330. DRESSING DRY AND INTACT. DISCHARGE INSTRUCTIONS GIVEN. VERBALIZED UNDERSTANDING. DISCHARGE VIA AMBULATOR WITH SPOUSE. DENIES PAIN. A&O.
[2024-12-13 15:33] LABS: APPEARANCE BODY FLUID SLIGHTLY CLOUDY (CLEAR); COLOR,BODY FLUID YELLOW (LT YELLOW); SPECIMENTYPE,BODY FLUID ASCITES; TOTAL VOLUME,BODY FLUID 7400 mL
--- NOTE | 2024-12-13 15:33 | HMCIMG ---
US ABDOMINAL PARACENTESIS IR HISTORY: No additional history given. COMPARISON: None TECHNIQUE: Informed consent was obtained. Risks and benefits were explained to the patient. A timeout was performed. Patient was prepped and draped in a sterile fashion. Local anesthetics was given as required. Under ultrasound guidance, ascites fluid was localized. Paracentesis was performed. FINDINGS: 7.4 L of ascites fluid was aspirated. Less than 2 cc blood loss is noted. Patient tolerated procedure without complication. Patient left the department in good condition. IMPRESSION: 1. Uncomplicated ultrasound guidance paracentesis.
[2024-12-13 15:37] LABS: BODY FLUID RBC 280 /cu. mm.; BODY FLUID WBC 54 /cu. mm.
[2024-12-13 16:03] LABS: BF EOSINOPHIL 1 %; BF LYMPHOCYTE 23 %; BF MACROPHAGE 62; BF MONOCYTE 4 %; BF OTHER CELLS 2; BF TOTAL CELLS COUNTED 100
== END | disposition home or self-care (01) ==
LOC: RAH 12:31
PROVIDERS: ATTEND Internal Medicine
DX: R18.8 Other ascites (principal); K74.60 Unspecified cirrhosis of liver; I10 Essential (primary) hypertension; E78.5 Hyperlipidemia, unspecified; E03.9 Hypothyroidism, unspecified; E11.9 Type 2 diabetes mellitus without complications; M19.90 Unspecified osteoarthritis, unspecified site; K21.9 Gastro-esophageal reflux disease without esophagitis; K58.1 Irritable bowel syndrome with constipation; Z86.2 Personal history of diseases of the blood and blood-forming organs and certain disorders involving the immune mechanism; Z79.82 Long term (current) use of aspirin; Z79.01 Long term (current) use of anticoagulants; Z79.890 Hormone replacement therapy; Z98.891 History of uterine scar from previous surgery; Z90.710 Acquired absence of both cervix and uterus; Z90.49 Acquired absence of other specified parts of digestive tract; Z79.899 Other long term (current) drug therapy; Z98.890 Other specified postprocedural states
CPT/HCPCS: 49083; 80053; 85025; 89051; 85610; 85730; 36415; P9046; C1729; 96365

== ENCOUNTER → 2025-01-10 | Outpatient (CLI) | payer MEDICARE ==
[~2025-01-10] MED LIST changes: +CARV3.12 PO; +OMEP40CA21 PO
--- NOTE | 2025-01-10 09:40 | NUR ---
U/S GD PARACENTESIS TOLERATED PROCEDURE. PERFORMED BY DR Malcolm PINO. PUNCTURE SITE TO RLQ. 6.0 LITER OF YELLOW CLOUDY FLUID REMOVED AND SENT TO LAB. ALBUMIN 25% 50 GRAMS GIVEN. END OF PROCEDURE 0920. DRESSING DRY AND INTACT. NO BLEEDING NOTED. DISCHARGE INSTRUCTIONS GIVEN. VERBALIZED UNDERSTANDING. DISCHARGE VIA AMBULATORY WITH SPOUSE. A&O. DENIES PAIN.
[2025-01-10] MEDS: ALBUMIN HUMAN 25% 200 ML IV ONE (09:42)
--- NOTE | 2025-01-10 10:43 | HMCIMG ---
US ABDOMINAL PARACENTESIS IR REASON: ASCITES TECHNIQUE: Paracentesis was performed with ultrasound guidance. The puncture site was selected in the Right lower quadrant and overlying skin prepped and draped in a sterile fashion. 1% Xylocaine infiltration was performed. Catheter was placed in the fluid using trocar technique. 6 L were removed. Fluid sample was submitted for laboratory evaluation. The patient showed no evidence of complication during the procedure. IMPRESSION: 1. Ultrasound-guided paracentesis.
[2025-01-10 14:09] LABS: BODY FLUID RBC 331 /cu. mm.; BODY FLUID WBC 170 /cu. mm.
[2025-01-10 14:19] LABS: APPEARANCE BODY FLUID CLEAR (CLEAR); COLOR,BODY FLUID YELLOW (LT YELLOW); SPECIMENTYPE,BODY FLUID ASCITES; TOTAL VOLUME,BODY FLUID 6000 mL
[2025-01-10 15:53] LABS: BF EOSINOPHIL 1 %; BF LYMPHOCYTE 74 %; BF MESOTHELIAL 16 %; BF MONOCYTE 3 %; BF TOTAL CELLS COUNTED 100
== END | disposition home or self-care (01) ==
LOC: RAH 07:50
PROVIDERS: ATTEND Internal Medicine
DX: R18.8 Other ascites (principal); K74.60 Unspecified cirrhosis of liver; I10 Essential (primary) hypertension; E78.5 Hyperlipidemia, unspecified; I85.10 Secondary esophageal varices without bleeding; E03.9 Hypothyroidism, unspecified; E11.9 Type 2 diabetes mellitus without complications; M19.90 Unspecified osteoarthritis, unspecified site; K21.00 Gastro-esophageal reflux disease with esophagitis, without bleeding; D50.9 Iron deficiency anemia, unspecified; K58.1 Irritable bowel syndrome with constipation; Z90.49 Acquired absence of other specified parts of digestive tract; Z90.710 Acquired absence of both cervix and uterus; Z98.891 History of uterine scar from previous surgery; Z79.01 Long term (current) use of anticoagulants; Z79.890 Hormone replacement therapy; Z86.0100 Personal history of colon polyps, unspecified; Z79.899 Other long term (current) drug therapy; Z98.890 Other specified postprocedural states
CPT/HCPCS: 49083; 89051; P9046; C1729; 96365

== ENCOUNTER 2025-01-18 06:56 | Day surgery (SDC) | payer MEDICARE ==
[~2025-01-18] VITALS: Ht 157.5 cm; Wt 57.2 kg
[2025-01-18] VITALS (10 sets, daily range): BP systolic 100–114; BP diastolic 50–61; PULSE 65–71; RESP 14–20; TEMP 97–97.3
[~2025-01-18 06:56] MED LIST changes: -ALBUMIN HUMAN 25% 200 ML IV ONE; -LACT PO; -LEVO50CA4 PO; +LEVO50CA5 PO; -PANT40TA55 PO
[2025-01-18] MEDS: 0.9%NACL 1000ML 1,000 ML IV ONE (07:40)
[2025-01-18] MEDS ORDERED: proPOFol 10 MG/ML 20ML VIAL IV ONE (09:24)
[2025-01-18] MEDS ORDERED: SUCR1TAB2 PO (10:17)
--- NOTE | 2025-01-18 10:40 | NUR ---
Full and complete discharge instructions given to Patient and Family both verbally and in writing. Explained GI procedure precautions and follow up. All questions answered. PIV removed with catheter tip intact. Home with Family W/C to POV.
== END 2025-01-18 10:40 | disposition home or self-care (01) ==
LOC: ENDO 06:56 → DAH 06:56 → ENDO 10:40
PROVIDERS: ATTEND Internal Medicine Gastroenterology
DX: D50.9 Iron deficiency anemia, unspecified (principal); K22.89 Other specified disease of esophagus; I85.10 Secondary esophageal varices without bleeding; I10 Essential (primary) hypertension; E78.5 Hyperlipidemia, unspecified; K31.89 Other diseases of stomach and duodenum; K76.6 Portal hypertension; E11.9 Type 2 diabetes mellitus without complications; R18.8 Other ascites; K74.60 Unspecified cirrhosis of liver; K64.1 Second degree hemorrhoids; K21.00 Gastro-esophageal reflux disease with esophagitis, without bleeding; K44.9 Diaphragmatic hernia without obstruction or gangrene; Z86.0100 Personal history of colon polyps, unspecified; E03.9 Hypothyroidism, unspecified; M19.90 Unspecified osteoarthritis, unspecified site; K58.9 Irritable bowel syndrome, unspecified; Z90.49 Acquired absence of other specified parts of digestive tract; Z90.710 Acquired absence of both cervix and uterus; Z79.82 Long term (current) use of aspirin; Z79.899 Other long term (current) drug therapy
CPT/HCPCS: 43239; 82948 ×2; 43270; J7030 ×2; J2704; A4620; A4215 ×2; A4223; A4222; A4221; A4663; A4606; 43255; J3490

== ENCOUNTER → 2025-02-22 | Outpatient (CLI) | payer MEDICARE ==
[~2025-02-22] MED LIST changes: +ALBUMIN HUMAN 25% 200 ML IV ONE; +SUCR1TAB2 PO
[2025-02-22] MEDS: ALBUMIN HUMAN 25% 200 ML IV ONE (10:17)
--- NOTE | 2025-02-22 10:40 | NUR ---
U/S GD PARACENTESIS TOLERATED PROCEDURE. PERFORMED BY DR Ara SHERWOOD. 8.0 LITERS OF YELLOW CLEAR ASCITES FLUID REMOVED. ALBUMIN 25% 50 GRAMS GIVEN IV. PUNCTURE SITE TO LLQ. END OF PROCEDURE AT 1020. DRESSING DRY AND INTACT. NO BLEEDING NOTED. DISCHARGE INSTRUCTIONS GIVEN. VERBALIZED UNDERSTANDING. DISCHARGE VIA AMBULATORY. DENIES PAIN. A&O.
--- NOTE | 2025-02-22 14:10 | HMCIMG ---
US ABDOMINAL PARACENTESIS IR HISTORY: Ascites COMPARISON: None TECHNIQUE: Informed consent was obtained. Risks and benefits were explained to the patient. A timeout was performed. Patient was prepped and draped in a sterile fashion. Local anesthetics was given as required. Under ultrasound guidance, ascites fluid was localized. Paracentesis was performed. FINDINGS: 8 L of yellowish fluid was aspirated. Less than 2 cc blood loss is noted. Patient tolerated procedure without complication. Patient left the department in good condition. IMPRESSION: 1. Uncomplicated ultrasound guidance paracentesis.
[2025-02-22 15:17] LABS: BODY FLUID RBC 176 /cu. mm.; BODY FLUID WBC 37 /cu. mm.
[2025-02-22 15:37] LABS: APPEARANCE BODY FLUID SLIGHTLY CLOUDY (CLEAR); COLOR,BODY FLUID YELLOW (LT YELLOW); SPECIMENTYPE,BODY FLUID ASCITES; TOTAL VOLUME,BODY FLUID 8000 mL
[2025-02-22 16:24] LABS: BF LYMPHOCYTE 57 %; BF MACROPHAGE 21; BF MONOCYTE 5 %; BF TOTAL CELLS COUNTED 100
== END ==
LOC: RAH 09:28
PROVIDERS: ATTEND Internal Medicine Gastroenterology
DX: R18.8 Other ascites (principal); K74.60 Unspecified cirrhosis of liver; I10 Essential (primary) hypertension; E11.9 Type 2 diabetes mellitus without complications; D50.9 Iron deficiency anemia, unspecified; K21.9 Gastro-esophageal reflux disease without esophagitis; K58.1 Irritable bowel syndrome with constipation; I85.10 Secondary esophageal varices without bleeding; E78.5 Hyperlipidemia, unspecified; E03.9 Hypothyroidism, unspecified; M19.90 Unspecified osteoarthritis, unspecified site; Z86.2 Personal history of diseases of the blood and blood-forming organs and certain disorders involving the immune mechanism; Z90.49 Acquired absence of other specified parts of digestive tract; Z90.710 Acquired absence of both cervix and uterus; Z98.891 History of uterine scar from previous surgery; Z80.9 Family history of malignant neoplasm, unspecified; Z79.899 Other long term (current) drug therapy; Z98.890 Other specified postprocedural states
CPT/HCPCS: 49083; 89051; P9046; C1729; 96365

== ENCOUNTER → 2025-04-06 | Outpatient (CLI) | payer MEDICARE ==
[2025-04-06 09:36] LABS: BASOPHILS # (AUTO) 0.06 K/uL (0.00-0.20); BASOPHILS % (AUTO) 1.3 % (0.0-5.0); EOSINOPHILS # (AUTO) 0.29 K/uL (0.00-0.70); EOSINOPHILS % (AUTO) 6.3 % (0.0-8.0); HEMATOCRIT 28.3 % (36-48); IMMATURE GRANULOCYTE ABSOLUTE 0.02 K/uL (0-1); LYMPHOCYTES # (AUTO) 0.5 K/uL (1.0-4.8); LYMPHOCYTES % (AUTO) 10.6 % (21.0-51.0); MEAN CORPUSCULAR HEMOGLOBIN 27.4 pg (27.0-33.0); MEAN CORPUSCULAR HGB CONC 30.4 g/dL (32.0-36.0); MEAN CORPUSCULAR VOLUME 90.1 fL (79-99); MONOCYTES # (AUTO) 0.4 K/uL (0.1-1.0); MONOCYTES % (AUTO) 9.5 % (3.0-13.0); NEUTROPHILS # (AUTO) 3.3 K/uL (1.8-7.7); NEUTROPHILS % (AUTO) 71.9 % (40.0-77.0); PLATELET COUNT (AUTO) 281 K/uL (130-400); RED BLOOD CELL COUNT(AUTO) 3.14 MIL/uL (4.00-5.50); RED CELL DISTRIBUTION WIDTH 19.7 % (11.0-15.5); WHITE BLOOD COUNT (AUTO) 4.6 K/uL (4.8-10.8)
--- NOTE | 2025-04-06 09:40 | NUR ---
U/S GD PARACENTESIS TOLERATED PROCEDURE. PERFORMED BY DR Fuentes ARCE. PUNCTURE SITE TO RLQ. 6.5 LITERS OF YELLOW CLOUDY FLUID REMOVED AND SENT TO LAB. ALBUMIN 25% 50 GRAMS GIVEN IV. END OF PROCEDURE AT 0920. DRESSING APPLIED NO BLEEDING NOTED. DISCHARGE INSTRUCTIONS GIVEN. VERBALIZED UNDERSTANDING. DISCHARGE VIA AMBULATORY WITH SPOUSE. DENIES PAIN. A&O.
[2025-04-06 09:49] LABS: ALBUMIN 2.4 g/dL (3.5-5.0); BILIRUBIN,TOTAL 0.5 mg/dL (0.2-1.0); CREATININE 0.7 mg/dL (0.5-1.0); POTASSIUM 5.4 mmol/L (3.5-5.1); TOTAL PROTEIN, SERUM 6.9 g/dL (6.0-8.3)
[2025-04-06 09:57] LABS: INR 1.05 (0.85-1.15); PROTHROMBIN TIME 11.1 SEC (9.6-11.6)
[2025-04-06 09:58] LABS: PARTIAL THROMBOPLASTIN TIME 25.8 SEC (26.3-35.5)
[2025-04-06] MEDS: ALBUMIN HUMAN 25% 200 ML IV ONE (10:33)
--- NOTE | 2025-04-06 10:33 | HMCIMG ---
ULTRASOUND GUIDED PARACENTESIS: INDICATION: Ascites TECHNIQUE: Informed consent was obtained. Timeout performed. All elements of maximal sterile barrier technique, including hand hygiene and cutaneous antisepsis were used. Patient was placed supine. Right lower quadrant was prepped and draped in sterile fashion. Local anesthesia was applied. Then, under ultrasound guidance, a 5F centesis needle was advanced through the abdominal wall and into a pocket of fluid in the peritoneum. It yielded 6.5 L of fluid. The catheter was removed and sterile dressing applied. Blood pressure monitoring was performed during the procedure. Complications: None Blood loss: <5 mL. IMPRESSION: Successful ultrasound guided paracentesis.
[2025-04-06 13:54] LABS: APPEARANCE BODY FLUID CLEAR (CLEAR); COLOR,BODY FLUID LT YELLOW (LT YELLOW); SPECIMENTYPE,BODY FLUID ASCITES; TOTAL VOLUME,BODY FLUID 6500 mL
[2025-04-06 14:48] LABS: BODY FLUID RBC 154 /cu. mm.; BODY FLUID WBC 77 /cu. mm.
[2025-04-06 14:57] LABS: BF LYMPHOCYTE 62 %; BF MACROPHAGE 4; BF MONOCYTE 20 %; BF TOTAL CELLS COUNTED 100
== END | disposition home or self-care (01) ==
LOC: RAH 07:47
PROVIDERS: ATTEND Internal Medicine Gastroenterology
DX: R18.8 Other ascites (principal); K74.60 Unspecified cirrhosis of liver; K31.819 Angiodysplasia of stomach and duodenum without bleeding; I85.10 Secondary esophageal varices without bleeding; K59.04 Chronic idiopathic constipation; K58.1 Irritable bowel syndrome with constipation; K64.1 Second degree hemorrhoids; K21.00 Gastro-esophageal reflux disease with esophagitis, without bleeding; K44.9 Diaphragmatic hernia without obstruction or gangrene; E78.5 Hyperlipidemia, unspecified; I10 Essential (primary) hypertension; E03.9 Hypothyroidism, unspecified; E11.9 Type 2 diabetes mellitus without complications; M19.90 Unspecified osteoarthritis, unspecified site; Z86.2 Personal history of diseases of the blood and blood-forming organs and certain disorders involving the immune mechanism; Z90.49 Acquired absence of other specified parts of digestive tract; Z90.710 Acquired absence of both cervix and uterus; Z98.891 History of uterine scar from previous surgery; Z80.1 Family history of malignant neoplasm of trachea, bronchus and lung; Z86.0100 Personal history of colon polyps, unspecified; Z79.899 Other long term (current) drug therapy; Z79.82 Long term (current) use of aspirin; Z79.890 Hormone replacement therapy
CPT/HCPCS: 49083; 80053; 85025; 89051; 85610; 85730; 36415; P9046; C1729; 96365

== ENCOUNTER → 2025-05-07 | Outpatient (CLI) | payer MEDICARE ==
[~2025-05-07] MED LIST changes: -ASPI-1197 PO; +DOCU-116 PO; +FERR-72 PO; -FERR-82 PO; -METO5TAB2 PO; -OMEP40CA21 PO; +PANT40TA54 PO; +PLEC3TAB2 PO; -SUCR1TAB2 PO
[2025-05-07 09:50] LABS: BASOPHILS # (AUTO) 0.07 K/uL (0.00-0.20); BASOPHILS % (AUTO) 1.6 % (0.0-5.0); EOSINOPHILS # (AUTO) 0.37 K/uL (0.00-0.70); EOSINOPHILS % (AUTO) 8.2 % (0.0-8.0); HEMATOCRIT 29.6 % (36-48); IMMATURE GRANULOCYTE ABSOLUTE 0.01 K/uL (0-1); LYMPHOCYTES # (AUTO) 0.4 K/uL (1.0-4.8); LYMPHOCYTES % (AUTO) 9.6 % (21.0-51.0); MEAN CORPUSCULAR HEMOGLOBIN 27.5 pg (27.0-33.0); MEAN CORPUSCULAR HGB CONC 31.1 g/dL (32.0-36.0); MEAN CORPUSCULAR VOLUME 88.4 fL (79-99); MONOCYTES # (AUTO) 0.5 K/uL (0.1-1.0); MONOCYTES % (AUTO) 10.9 % (3.0-13.0); NEUTROPHILS # (AUTO) 3.1 K/uL (1.8-7.7); NEUTROPHILS % (AUTO) 69.5 % (40.0-77.0); PLATELET COUNT (AUTO) 291 K/uL (130-400); RED BLOOD CELL COUNT(AUTO) 3.35 MIL/uL (4.00-5.50); RED CELL DISTRIBUTION WIDTH 17.2 % (11.0-15.5); WHITE BLOOD COUNT (AUTO) 4.5 K/uL (4.8-10.8)
[2025-05-07 10:00] LABS: INR 1.12 (0.85-1.15); PROTHROMBIN TIME 11.7 SEC (9.6-11.6)
[2025-05-07 10:10] LABS: ALBUMIN 2.5 g/dL (3.5-5.0); BILIRUBIN,TOTAL 0.5 mg/dL (0.2-1.0); CREATININE 0.9 mg/dL (0.5-1.0); POTASSIUM 4.4 mmol/L (3.5-5.1); TOTAL PROTEIN, SERUM 6.3 g/dL (6.0-8.3)
--- NOTE | 2025-05-07 10:50 | NUR ---
U/S GD PARACENTESIS PROCEDURE PERFORMED BY DR Ara SHERWOOD. PUNCTURE SITE LLQ AND PATIENT TOLERATED PROCEDURE WELL. TOTAL REMOVED 7.2 LITERS OF YELLOW CLOUDY FLUID. ALBUMIN 25% 50 GRAMS IV GIVEN DURING PROCEDURE. SPECIMEN SENT TO LAB. END OF PROCEDURE AT 1030. CATHETER REMOVED AND DRESSING APPLIED. NO BLEEDING NOTED. DISCHARGE INSTRUCTIONS GIVEN TO PATIENT AND VERBALIZED UNDERSTANDING. DISCHARGED VIA AMBULATORY. AAO X3 WITH NO C/O PAIN.
--- NOTE | 2025-05-07 12:31 | HMCIMG ---
US ABDOMINAL PARACENTESIS IR HISTORY: Ascites COMPARISON: None TECHNIQUE: Informed consent was obtained. Risks and benefits were explained to the patient. A timeout was performed. Patient was prepped and draped in a sterile fashion. Local anesthetics was given as required. Under ultrasound guidance, ascites fluid was localized. Ultrasound guidance paracentesis was performed. FINDINGS: 7.2 L of yellowish fluid was aspirated. Less than 2 cc blood loss is noted. Patient tolerated procedure without complication. Patient left the department in good condition. IMPRESSION: 1. Complicated ultrasound guidance paracentesis.
[2025-05-07 13:55] LABS: APPEARANCE BODY FLUID CLEAR (CLEAR); COLOR,BODY FLUID YELLOW (LT YELLOW); SPECIMENTYPE,BODY FLUID ASCITES; TOTAL VOLUME,BODY FLUID 7200 mL
[2025-05-07 14:25] LABS: BODY FLUID RBC 0 /cu. mm.; BODY FLUID WBC 87 /cu. mm.
[2025-05-07] MEDS: ALBUMIN HUMAN 25% 200 ML IV ONE (15:41)
[2025-05-07 18:53] LABS: BF LYMPHOCYTE 44 %; BF MACROPHAGE 32; BF MONOCYTE 2 %; BF TOTAL CELLS COUNTED 100
== END | disposition home or self-care (01) ==
LOC: RAH 08:30
PROVIDERS: ATTEND Internal Medicine Gastroenterology
DX: R18.8 Other ascites (principal); D50.9 Iron deficiency anemia, unspecified; K31.819 Angiodysplasia of stomach and duodenum without bleeding; K74.60 Unspecified cirrhosis of liver; I85.10 Secondary esophageal varices without bleeding; K59.04 Chronic idiopathic constipation; K58.1 Irritable bowel syndrome with constipation; K21.00 Gastro-esophageal reflux disease with esophagitis, without bleeding; K44.9 Diaphragmatic hernia without obstruction or gangrene; I10 Essential (primary) hypertension; E78.5 Hyperlipidemia, unspecified; E03.9 Hypothyroidism, unspecified; M19.90 Unspecified osteoarthritis, unspecified site; Z90.49 Acquired absence of other specified parts of digestive tract; Z90.89 Acquired absence of other organs; Z98.890 Other specified postprocedural states; Z79.82 Long term (current) use of aspirin; Z79.899 Other long term (current) drug therapy; Z86.0100 Personal history of colon polyps, unspecified
CPT/HCPCS: 49083; 80053; 85025; 89051; 85610; 85730; 36415; P9046; C1729; 96365

== ENCOUNTER → 2025-05-21 | Outpatient (CLI) | payer MEDICARE ==
--- NOTE | 2025-05-21 10:40 | NUR ---
U/S GD PARACENTESIS PROCEDURE PERFORMED BY DR Raymundo POWERS. PUNCTURE SITE LLQ AND PATIENT TOLERATED PROCEDURE WELL. TOTAL REMOVED 7.2 LITERS OF YELLOW CLOUDY ASCITES FLUID. ALBUMIN 25% 50 GRAMS IV GIVEN DURING PROCEDURE. SPECIMEN SENT TO LAB. END OF PROCEDURE AT 1020. CATHETER REMOVED AND DRESSING APPLIED. NO BLEEDING NOTED. DISCHARGE INSTRUCTIONS GIVEN TO PATIENT AND VERBALIZED UNDERSTANDING. DISCHARGED VIA AMBULATORY. AAO X3 WITH NO C/O PAIN.
[2025-05-21 13:16] LABS: BODY FLUID RBC 0 /cu. mm.; BODY FLUID WBC 859 /cu. mm.
[2025-05-21 14:20] LABS: APPEARANCE BODY FLUID CLEAR (CLEAR); BF LYMPHOCYTE 58 %; BF MACROPHAGE 6; BF MESOTHELIAL 11 %; BF MONOCYTE 9 %; BF TOTAL CELLS COUNTED 100; COLOR,BODY FLUID YELLOW (LT YELLOW); SPECIMENTYPE,BODY FLUID ASCITES; TOTAL VOLUME,BODY FLUID 7200 mL
--- NOTE | 2025-05-22 16:56 | HMCIMG ---
US ABDOMINAL PARACENTESIS IR REASON: ASCITES TECHNIQUE: Paracentesis was performed with ultrasound guidance. The puncture site was selected in the Right lower quadrant and overlying skin prepped and draped in a sterile fashion. 1% Xylocaine infiltration was performed. Catheter was placed in the fluid using trocar technique. 7.2 L were removed. Fluid sample was submitted for laboratory evaluation. The patient showed no evidence of complication during the procedure. Patient tolerated procedure well. IMPRESSION: 1. Ultrasound-guided paracentesis.
== END | disposition home or self-care (01) ==
LOC: RAH 08:29
PROVIDERS: ATTEND Internal Medicine Gastroenterology
DX: R18.8 Other ascites (principal); K74.60 Unspecified cirrhosis of liver; K31.819 Angiodysplasia of stomach and duodenum without bleeding; I85.10 Secondary esophageal varices without bleeding; D50.9 Iron deficiency anemia, unspecified; K21.9 Gastro-esophageal reflux disease without esophagitis; K59.04 Chronic idiopathic constipation; K58.1 Irritable bowel syndrome with constipation; K44.9 Diaphragmatic hernia without obstruction or gangrene; I10 Essential (primary) hypertension; E78.5 Hyperlipidemia, unspecified; E11.9 Type 2 diabetes mellitus without complications; M19.90 Unspecified osteoarthritis, unspecified site; Z86.0100 Personal history of colon polyps, unspecified; Z90.49 Acquired absence of other specified parts of digestive tract; Z90.710 Acquired absence of both cervix and uterus; Z98.890 Other specified postprocedural states; Z79.82 Long term (current) use of aspirin; Z79.899 Other long term (current) drug therapy
CPT/HCPCS: 49083; 89051; P9046; C1729; 96365

== ENCOUNTER → 2025-06-04 | Outpatient (CLI) | payer MEDICARE ==
--- NOTE | 2025-06-04 10:10 | NUR ---
U/S GD PARACENTESIS PROCEDURE PERFORMED BY DR POWERS. PUNCTURE SITE LLQ AND PATIENT TOLERATED PROCEDURE WELL. TOTAL REMOVED 6.6 LITERS OF YELLOW CLOUDY ASCITES FLUID. ALBUMIN 25% 50 GRAMS IV GIVEN DURING PROCEDURE. SPECIMEN SENT TO LAB. END OF PROCEDURE AT 0950. CATHETER REMOVED AND DRESSING APPLIED. NO BLEEDING NOTED. DISCHARGE INSTRUCTIONS GIVEN TO PATIENT AND VERBALIZED UNDERSTANDING. DISCHARGED VIA AMBULATORY. AAO X3 WITH NO C/O PAIN.
[2025-06-04] MEDS: ALBUMIN HUMAN 25% 200 ML IV ONE (10:54)
[2025-06-04 13:26] LABS: ALBUMIN,BODY FLUID < 0.6 g/dL; TOTAL PROTEIN,BODY FLUID < 2.0 g/dL
[2025-06-04 13:54] LABS: APPEARANCE BODY FLUID CLEAR (CLEAR); COLOR,BODY FLUID LT YELLOW (LT YELLOW); SPECIMENTYPE,BODY FLUID ASCITES; TOTAL VOLUME,BODY FLUID 6600 mL
[2025-06-04 13:56] LABS: BODY FLUID RBC 90 /cu. mm.; BODY FLUID WBC 100 /cu. mm.
--- NOTE | 2025-06-04 14:15 | HMCIMG ---
US ABDOMINAL PARACENTESIS IR REASON: ASCITES TECHNIQUE: Paracentesis was performed with ultrasound guidance. The puncture site was selected in the Right lower quadrant and overlying skin prepped and draped in a sterile fashion. 1% Xylocaine infiltration was performed. Catheter was placed in the fluid using trocar technique. 6.6 L were removed. Fluid sample was submitted for laboratory evaluation. The patient showed no evidence of complication during the procedure. Patient tolerated procedure well. IMPRESSION: 1. Ultrasound-guided paracentesis.
[2025-06-04 15:06] LABS: BF LYMPHOCYTE 85 %; BF MESOTHELIAL 3 %; BF MONOCYTE 4 %; BF NEUTROPHIL 8.0 %; BF TOTAL CELLS COUNTED 100
== END | disposition home or self-care (01) ==
LOC: RAH 08:43
PROVIDERS: ATTEND Internal Medicine Gastroenterology
DX: R18.8 Other ascites (principal); K74.60 Unspecified cirrhosis of liver; I85.10 Secondary esophageal varices without bleeding; D50.9 Iron deficiency anemia, unspecified; K31.819 Angiodysplasia of stomach and duodenum without bleeding; K59.04 Chronic idiopathic constipation; K58.1 Irritable bowel syndrome with constipation; K64.1 Second degree hemorrhoids; K21.9 Gastro-esophageal reflux disease without esophagitis; K44.9 Diaphragmatic hernia without obstruction or gangrene; I10 Essential (primary) hypertension; E78.5 Hyperlipidemia, unspecified; E03.9 Hypothyroidism, unspecified; M19.90 Unspecified osteoarthritis, unspecified site; K58.9 Irritable bowel syndrome, unspecified; Z86.0100 Personal history of colon polyps, unspecified; Z90.49 Acquired absence of other specified parts of digestive tract; Z90.710 Acquired absence of both cervix and uterus; Z98.890 Other specified postprocedural states; Z79.899 Other long term (current) drug therapy
CPT/HCPCS: 49083; 84157; 89051; 87071; 87205; 82042; 88108; 88305; P9046; C1729; 96365

== ENCOUNTER → 2025-06-18 | Outpatient (CLI) | payer MEDICARE ==
[~2025-06-18] MED LIST changes: -ALBUMIN HUMAN 25% 200 ML IV ONE
[2025-06-18] MEDS: ALBUMIN HUMAN 25% 200 ML IV ONE (11:10)
[2025-06-18 11:24] LABS: IMMATURE GRANULOCYTE ABSOLUTE 0.01 K/uL (0-1); NUCLEATED RED BLOOD CELLS 0.0 % (0.0-0.19); PLATELET COUNT (AUTO) 205 K/uL (130-400); RED BLOOD CELL COUNT(AUTO) 2.88 MIL/uL (4.00-5.50); RED CELL DISTRIBUTION WIDTH 18.2 % (11.0-15.5); WHITE BLOOD COUNT (AUTO) 4.3 K/uL (4.8-10.8)
[2025-06-18 11:35] LABS: INR 1.07 (0.85-1.15)
[2025-06-18 11:40] LABS: ASPARTATE AMINOTRANSFERASE 35.0 U/L (10-37); CREATININE 0.8 mg/dL (0.5-1.0); GLOMERULAR FILTR. RATE CALC 78.0 mL/min (>90); GLUCOSE,RANDOM 100.0 mg/dL (70-105); SODIUM SERUM 136.0 mmol/L (136-145); TOTAL PROTEIN, SERUM 6.3 g/dL (6.0-8.3); UREA NITROGEN, BLOOD 22.0 mg/dL (7-18)
--- NOTE | 2025-06-18 11:50 | NUR ---
U/S GD PARACENTESIS PROCEDURE PERFORMED BY DR POWERS. PUNCTURE SITE RLQ AND PATIENT TOLERATED PROCEDURE WELL. TOTAL REMOVED 7.5 LITERS OF YELLOW CLOUDY ASCITES. ALBUMIN 25% 50 GRAMS IV GIVEN DURING PROCEDURE. SPECIMEN SENT TO LAB. END OF PROCEDURE AT 1130. CATHETER REMOVED AND DRESSING APPLIED. NO BLEEDING NOTED. DISCHARGE INSTRUCTIONS GIVEN TO PATIENT AND VERBALIZED UNDERSTANDING. DISCHARGED VIA AMBULATORY. AAO X3 WITH NO C/O PAIN.
[2025-06-18 13:58] LABS: ALBUMIN,BODY FLUID < 0.6 g/dL; TOTAL PROTEIN,BODY FLUID < 2.0 g/dL
[2025-06-18 14:47] LABS: BODY FLUID RBC 227 /cu. mm.; BODY FLUID WBC 22 /cu. mm.
--- NOTE | 2025-06-18 14:58 | HMCIMG ---
US ABDOMINAL PARACENTESIS IR REASON: ASCITES TECHNIQUE: Paracentesis was performed with ultrasound guidance. The puncture site was selected in the Right lower quadrant and overlying skin prepped and draped in a sterile fashion. 1% Xylocaine infiltration was performed. Catheter was placed in the fluid using trocar technique. 7.5 L were removed. Fluid sample was submitted for laboratory evaluation. The patient showed no evidence of complication during the procedure. Patient tolerated procedure well. IMPRESSION: 1. Ultrasound-guided paracentesis.
[2025-06-18 18:16] LABS: BF LYMPHOCYTE 43 %; BF MACROPHAGE 23; BF MESOTHELIAL 3 %; BF MONOCYTE 2 %; BF NEUTROPHIL 28.0 %; BF OTHER CELLS 1; BF TOTAL CELLS COUNTED 100
[2025-06-18 18:17] LABS: APPEARANCE BODY FLUID SLIGHTLY CLOUDY (CLEAR); COLOR,BODY FLUID LT YELLOW (LT YELLOW)
[2025-06-18 18:18] LABS: SPECIMENTYPE,BODY FLUID ASCITES; TOTAL VOLUME,BODY FLUID 7500 mL
== END | disposition home or self-care (01) ==
LOC: RAH 09:38
PROVIDERS: ATTEND Internal Medicine Gastroenterology
DX: R18.8 Other ascites (principal); K31.819 Angiodysplasia of stomach and duodenum without bleeding; D50.9 Iron deficiency anemia, unspecified; K76.0 Fatty (change of) liver, not elsewhere classified; I85.10 Secondary esophageal varices without bleeding; K59.04 Chronic idiopathic constipation; K58.1 Irritable bowel syndrome with constipation; K64.1 Second degree hemorrhoids; K21.9 Gastro-esophageal reflux disease without esophagitis; K44.9 Diaphragmatic hernia without obstruction or gangrene; I10 Essential (primary) hypertension; E03.9 Hypothyroidism, unspecified; E11.9 Type 2 diabetes mellitus without complications; E78.5 Hyperlipidemia, unspecified; M19.90 Unspecified osteoarthritis, unspecified site; Z86.0100 Personal history of colon polyps, unspecified; Z79.899 Other long term (current) drug therapy
CPT/HCPCS: 49083; 84157; 80053; 85025; 89051; 85610; 85730; 87071; 87076; 87205; 82042; 36415; 88108; 88305; P9046; C1729; 96365

== ENCOUNTER → 2025-08-13 | Outpatient (CLI) | payer MEDICARE ==
[~2025-08-13] MED LIST changes: +ALBUMIN HUMAN 25% 200 ML IV ONE
[2025-08-13 11:27] LABS: ALBUMIN,BODY FLUID < 0.6 g/dL; TOTAL PROTEIN,BODY FLUID < 2.0 g/dL
[2025-08-13 11:56] LABS: APPEARANCE BODY FLUID CLEAR (CLEAR); COLOR,BODY FLUID LT YELLOW (LT YELLOW); SPECIMENTYPE,BODY FLUID ASCITES; TOTAL VOLUME,BODY FLUID 8000 mL
[2025-08-13 12:48] LABS: BODY FLUID RBC 182 /cu. mm.; BODY FLUID WBC 55 /cu. mm.
[2025-08-13 12:59] LABS: BF BASOPHIL 1 %; BF LYMPHOCYTE 40 %; BF MACROPHAGE 7; BF MESOTHELIAL 5 %; BF MONOCYTE 11 %; BF NEUTROPHIL 36.0 %; BF TOTAL CELLS COUNTED 100
--- NOTE | 2025-08-14 08:39 | HMCIMG ---
US ABDOMINAL PARACENTESIS IR REASON: ASCITES TECHNIQUE: Paracentesis was performed with ultrasound guidance. The puncture site was selected in the Left lower quadrant and overlying skin prepped and draped in a sterile fashion. 1% Xylocaine infiltration was performed. Catheter was placed in the fluid using trocar technique. 6 L were removed. Fluid sample was submitted for laboratory evaluation. The patient showed no evidence of complication during the procedure. Patient tolerated procedure well IMPRESSION: 1. Ultrasound-guided paracentesis.
== END | disposition home or self-care (01) ==
LOC: RAH 07:51
PROVIDERS: ATTEND Internal Medicine Gastroenterology
DX: R18.8 Other ascites (principal); K74.60 Unspecified cirrhosis of liver
CPT/HCPCS: 49083; 84157; 89051; 87071; 87076; 87205; 82042; 88108; 88305; P9046; C1729

== ENCOUNTER → 2025-08-27 | Outpatient (CLI) | payer MEDICARE ==
--- NOTE | 2025-08-27 10:53 | NUR ---
U/S GD PARACENTESIS PROCEDURE PERFORMED BY DR Raymundo WYNNE. PUNCTURE SITE LLQ AND PATIENT TOLERATED PROCEDURE WELL. TOTAL REMOVED 6.2 LITERS OF CLOUDY YELLOW FLUID. ALBUMIN 25% 50 GRAMS IV GIVEN DURING PROCEDURE. SPECIMEN SENT TO LAB. END OF PROCEDURE AT 1030. CATHETER REMOVED AND DRESSING APPLIED. NO BLEEDING NOTED. DISCHARGE INSTRUCTIONS GIVEN TO PATIENT AND VERBALIZED UNDERSTANDING. DISCHARGED VIA AMBULATION AT 1100. AAO X3 WITH NO C/O PAIN.
[2025-08-27 12:57] LABS: ALBUMIN,BODY FLUID < 0.6 g/dL; TOTAL PROTEIN,BODY FLUID < 2.0 g/dL
[2025-08-27 13:06] LABS: BODY FLUID RBC 221 /cu. mm.; BODY FLUID WBC 141 /cu. mm.
--- NOTE | 2025-08-27 13:08 | HMCIMG ---
US ABDOMINAL PARACENTESIS IR REASON: ASCITES TECHNIQUE: Paracentesis was performed with ultrasound guidance. The puncture site was selected in the Left lower quadrant and overlying skin prepped and draped in a sterile fashion. 1% Xylocaine infiltration was performed. Catheter was placed in the fluid using trocar technique. 6.2 L were removed. Fluid sample was submitted for laboratory evaluation. The patient showed no evidence of complication during the procedure. Patient tolerated procedure well. IMPRESSION: 1. Ultrasound-guided paracentesis.
[2025-08-27 13:33] LABS: APPEARANCE BODY FLUID CLEAR (CLEAR); COLOR,BODY FLUID LT YELLOW (LT YELLOW); SPECIMENTYPE,BODY FLUID ASCITES; TOTAL VOLUME,BODY FLUID 6200 mL
[2025-08-27 13:47] LABS: BF LYMPHOCYTE 46 %; BF MACROPHAGE 6; BF MESOTHELIAL 2 %; BF MONOCYTE 29 %; BF NEUTROPHIL 17.0 %; BF TOTAL CELLS COUNTED 100
== END | disposition home or self-care (01) ==
LOC: RAH 09:35
PROVIDERS: ATTEND Internal Medicine Gastroenterology
DX: R18.8 Other ascites (principal); K74.60 Unspecified cirrhosis of liver; K21.9 Gastro-esophageal reflux disease without esophagitis; K31.819 Angiodysplasia of stomach and duodenum without bleeding; D50.9 Iron deficiency anemia, unspecified; I85.10 Secondary esophageal varices without bleeding; K64.1 Second degree hemorrhoids; K44.9 Diaphragmatic hernia without obstruction or gangrene; I10 Essential (primary) hypertension; E78.5 Hyperlipidemia, unspecified; E03.9 Hypothyroidism, unspecified; E11.9 Type 2 diabetes mellitus without complications; Z90.49 Acquired absence of other specified parts of digestive tract; Z86.0100 Personal history of colon polyps, unspecified; Z90.710 Acquired absence of both cervix and uterus; Z98.890 Other specified postprocedural states
CPT/HCPCS: 49083; 84157; 89051; 87071; 87076; 87205; 82042; P9046; C1729

== ENCOUNTER → 2025-09-10 | Outpatient (CLI) | payer MEDICARE ==
[~2025-09-10] MED LIST changes: -ALBUMIN HUMAN 25% 200 ML IV ONE
[2025-09-10 11:00] LABS: IMMATURE GRANULOCYTE ABSOLUTE 0.03 K/uL (0-1); NUCLEATED RED BLOOD CELLS 0.0 % (0.0-0.19); PLATELET COUNT (AUTO) 215 K/uL (130-400); RED BLOOD CELL COUNT(AUTO) 2.33 MIL/uL (4.00-5.50); RED CELL DISTRIBUTION WIDTH 15.6 % (11.0-15.5); WHITE BLOOD COUNT (AUTO) 4.5 K/uL (4.8-10.8)
--- NOTE | 2025-09-10 11:00 | NUR ---
U/S GD PARACENTESIS PROCEDURE PERFORMED BY DR Raymundo POWERS. PUNCTURE SITE LLQ AND PATIENT TOLERATED PROCEDURE WELL. TOTAL REMOVED 5.8 LITERS OF CLOUDY YELLOW FLUID. ALBUMIN 25% 50 GRAMS IV GIVEN DURING PROCEDURE. SPECIMEN SENT TO LAB. END OF PROCEDURE AT 1030. CATHETER REMOVED AND DRESSING APPLIED. NO BLEEDING NOTED. DISCHARGE INSTRUCTIONS GIVEN TO PATIENT AND VERBALIZED UNDERSTANDING. DISCHARGED VIA AMBULATION AT 1100. AAO X3 WITH NO C/O PAIN.
[2025-09-10 11:08] LABS: INR 1.07 (0.85-1.15)
[2025-09-10 11:17] LABS: ASPARTATE AMINOTRANSFERASE 38.0 U/L (10-37); CREATININE 1.1 mg/dL (0.5-1.0); GLOMERULAR FILTR. RATE CALC 53.0 mL/min (>90); GLUCOSE,RANDOM 105.0 mg/dL (70-105); SODIUM SERUM 137.0 mmol/L (136-145); TOTAL PROTEIN, SERUM 6.4 g/dL (6.0-8.3); UREA NITROGEN, BLOOD 29.0 mg/dL (7-18)
--- NOTE | 2025-09-10 14:41 | HMCIMG ---
US ABDOMINAL PARACENTESIS IR REASON: ASCITES TECHNIQUE: Paracentesis was performed with ultrasound guidance. The puncture site was selected in the left lower quadrant and overlying skin prepped and draped in a sterile fashion. 1% Xylocaine infiltration was performed. Catheter was placed in the fluid using trocar technique. 5.8 L were removed. Fluid sample was submitted for laboratory evaluation. The patient showed no evidence of complication during the procedure. Patient tolerated procedure well IMPRESSION: 1. Ultrasound-guided paracentesis.
[2025-09-10 15:00] LABS: TOTAL PROTEIN,BODY FLUID 1.1 g/dL
[2025-09-10 15:03] LABS: ALBUMIN,BODY FLUID 0.5 g/dL
[2025-09-10 15:17] LABS: APPEARANCE BODY FLUID CLEAR (CLEAR); COLOR,BODY FLUID LT YELLOW (LT YELLOW); SPECIMENTYPE,BODY FLUID ASCITES; TOTAL VOLUME,BODY FLUID 5800 mL
[2025-09-10 15:29] LABS: BODY FLUID RBC 106 /cu. mm.; BODY FLUID WBC 35 /cu. mm.
[2025-09-10] MEDS: ALBUMIN HUMAN 25% 200 ML IV ONE (16:17)
[2025-09-10 16:55] LABS: BF LYMPHOCYTE 5 %; BF MONOCYTE 1 %; BF NEUTROPHIL 94.0 %; BF TOTAL CELLS COUNTED 100
== END ==
LOC: RAH 09:24
PROVIDERS: ATTEND Internal Medicine Gastroenterology
DX: R18.8 Other ascites (principal); K74.60 Unspecified cirrhosis of liver; K31.819 Angiodysplasia of stomach and duodenum without bleeding; I85.00 Esophageal varices without bleeding; I10 Essential (primary) hypertension; E78.5 Hyperlipidemia, unspecified; E03.9 Hypothyroidism, unspecified; E11.9 Type 2 diabetes mellitus without complications; M19.90 Unspecified osteoarthritis, unspecified site; K21.00 Gastro-esophageal reflux disease with esophagitis, without bleeding; Z86.2 Personal history of diseases of the blood and blood-forming organs and certain disorders involving the immune mechanism; Z90.49 Acquired absence of other specified parts of digestive tract; Z90.710 Acquired absence of both cervix and uterus; Z98.890 Other specified postprocedural states
CPT/HCPCS: 49083; 84157; 80053; 85025; 89051; 85610; 85730; 87071; 87076; 87205; 82042; 36415; 88108; 88305; P9046; C1729

== ENCOUNTER → 2025-09-13 | Outpatient (CLI) | payer MEDICARE ==
[2025-09-13 08:33] LABS: CREATININE 1.0 mg/dL (0.5-1.0); GLOMERULAR FILTR. RATE CALC 59.0 mL/min (>90); GLUCOSE,RANDOM 107.0 mg/dL (70-105); SODIUM SERUM 137.0 mmol/L (136-145); UREA NITROGEN, BLOOD 23.0 mg/dL (7-18)
--- NOTE | 2025-09-14 05:37 | HMCIMG ---
EXAMINATION: ULTRASOUND OF THE ABDOMEN WITH DUPLEX SCAN. CLINICAL HISTORY: Ascites. COMPARISON: None. TECHNIQUE: Real-time grayscale ultrasound images of the abdomen. In addition, color Doppler is medically necessary to perform in order to evaluate vascularity and blood flow. FINDINGS: Liver: Normal in caliber, the right hepatic lobe measures 12.9 cm in the craniocaudal dimension. There is coarse echotexture of the hepatic parenchyma. There is no focal hepatic abnormality or intrahepatic biliary ductal dilatation. The main portal vein is normal and measures 1.2 cm. Appropriate hepatopetal flow within the hepatic arteries and portal veins, and hepatofugal flow within the hepatic veins. Doppler indices are as follow: Main portal vein: 11 cm/s Right hepatic vein: 44 cm/s Mid hepatic vein: 38 cm/s Left hepatic vein: 43 cm/s Splenic vein: 13 cm/s. Hepatic artery: 32 cm/s and RI 0.8 Right IJV: 49 cm/s. Gallbladder: Post cholecystectomy status. Common bile duct is normal in caliber, measuring 0.4 cm. Spleen is normal in caliber and measures 11.6 x 3.9 x 3.4 cm in craniocaudal, AP and transverse dimensions respectively. No focal lesions. Pancreas: Head and body appear normal in caliber and echotexture. No calcification or dilated pancreatic duct. Tail is obscured by overlying bowel gas. The kidneys are normal in caliber, the right kidney measures 8.8 x 3.4 x 3.9 cm and the left kidney measures 8.1 x 3.8 x 4.0 cm in its craniocaudal, AP and transverse dimensions respectively. There is normal renal cortical thickness and increased cortical echogenicity. There is no renal calculus or hydronephrosis bilaterally. There is moderate free fluid in all the four quadrants. Visualized aspects of the inferior vena cava are unremarkable. IMPRESSION: Chronic hepatic disease. Post cholecystectomy status. Increased echogenicity of both the kidneys may reflect renal parenchymal disease. Recommend clinical correlation and with laboratory parameters. Moderate ascites. Slow flow in the main portal vein and splenic vein. /Ralph
== END | disposition home or self-care (01) ==
LOC: RAH 07:03
PROVIDERS: ATTEND Internal Medicine Gastroenterology
DX: K76.9 Liver disease, unspecified (principal); R18.8 Other ascites; Z90.49 Acquired absence of other specified parts of digestive tract
CPT/HCPCS: 36415; 76700; 80048; 93975

== ENCOUNTER 2025-09-27 06:01 | Observation (INO) | payer MEDICARE ==
[2025-09-25 08:33] LABS: IMMATURE GRANULOCYTE ABSOLUTE 0.03 K/uL (0-1); NUCLEATED RED BLOOD CELLS 0.0 % (0.0-0.19); PLATELET COUNT (AUTO) 269 K/uL (130-400); RED BLOOD CELL COUNT(AUTO) 2.29 MIL/uL (4.00-5.50); RED CELL DISTRIBUTION WIDTH 16.2 % (11.0-15.5); WHITE BLOOD COUNT (AUTO) 5.9 K/uL (4.8-10.8)
[2025-09-25 08:56] LABS: ASPARTATE AMINOTRANSFERASE 29.0 U/L (10-37); CREATININE 1.1 mg/dL (0.5-1.0); GLOMERULAR FILTR. RATE CALC 53.0 mL/min (>90); GLUCOSE,RANDOM 111.0 mg/dL (70-105); SODIUM SERUM 133.0 mmol/L (136-145); TOTAL PROTEIN, SERUM 6.5 g/dL (6.0-8.3); UREA NITROGEN, BLOOD 29.0 mg/dL (7-18)
[2025-09-25 08:59] LABS: INR 1.08 (0.85-1.15)
[2025-09-25 09:09] VITALS: BP 121/50; PULSE 77; RESP 15; TEMP 97.9
--- NOTE | 2025-09-25 10:33 | EKG ---
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
--- NOTE | 2025-09-26 09:22 | NUR ---
report dr sinclair reviewed ekg. ok to proceed
--- NOTE | 2025-09-26 09:34 | NUR ---
REPORT REPORTED H&H TO DR POWERS. RECEIVED ORDERS TO TYPE AND CROSSMATCH FOR 2 UNITS OF PRBCS AND TRANSFUSE BEFORE PROCEDURE. ALSO INFORMED PT HAS ONE UNIT AVAILABLE AND THAT SHE HAS ANTIBODIES.
--- NOTE | 2025-09-26 10:01 | NUR ---
NOTIFIED BLOOD BANK [facility] INFORMED PT WILL NEED A SECOND UNIT OF BLOOD FOR TRANSFUSION TOMORROW. THEY WILL GET IT READY AND PLACE ORDER.
[2025-09-27] VITALS (18 sets, daily range): BP systolic 81–114; BP diastolic 31–55; PULSE 58–78; RESP 12–32; TEMP 97.8–98; O2SAT 98–99
[~2025-09-27] VITALS: Ht 157.5 cm; Wt 58.5 kg
[~2025-09-27 06:01] MED LIST changes: +CALCIUM PO; -CARV3.12 PO; +FOLI0.8C PO; +LACT-441 PO; -PLEC3TAB2 PO; +PSYL0.4C2 PO; -VITA-328 PO; +VITAMIN B PO
--- NOTE | 2025-09-27 07:50 | NUR ---
GIO WRIGHT AT BEDSIDE WITH PT VSS NAD
--- NOTE | 2025-09-27 08:00 | NUR ---
NAD VSS PT DENIES ANY COMPLAINTS AT THIS TIME PT RESTING COMFORTABLE
--- NOTE | 2025-09-27 08:45 | NUR ---
ULTRASOUND GUIDED PARACENTESIS PROCEDURE PERFORMED BY DR. Franky POWERS AT BEDSIDE IN DAY PATIENT ROOM 15. PUNCTURE SITE LLQ AND PATIENT TOLERATED PROCEDURE WELL. TOTAL REMOVED 6.8 LITERS OF ASCITES FLUID. END OF PROCEDURE AT 0840. CATHETER REMOVED AND DRESSING APPLIED. NO BLEEDING NOTED. REPORT GIVEN TO CHUNG CASTRO RN IN DAY PATIENT. PATIENT IS AWAKE AND ALERT WITH NO C/O PAIN. SPECIMEN SENT TO LAB.
--- NOTE | 2025-09-27 08:50 | NUR ---
6.5 LITERS REMOVED FROM LEFT QUADRANT PUNCTURE SITE PT TOLERATED WELL NAD VSS. PUNCTURE SITE ASYMPTOMATIC
--- NOTE | 2025-09-27 09:00 | NUR ---
NAD PT RESTING COMFORTABLE IN BED VSS
[2025-09-27] MEDS ORDERED: HEParin-NS 1,000 UNIT/500 ML 500 ML IV ONE ×3 (10:16→14:27)
[2025-09-27] MEDS ORDERED: GLYCOPYRROLATE 0.2 MG/ML 5 ML VIAL IM ONE (11:21)
[2025-09-27] MEDS ORDERED: SUCCINYLCHOLINE CHLORIDE 20 MG/ML 10 ML VIAL IVP ONE (11:21)
[2025-09-27] MEDS ORDERED: NEOSTIGMINE METHYLSULFATE 1MG/ML IV ONE (11:21)
[2025-09-27] MEDS ORDERED: LIDOCAINE PF 100MG/5ML (2%) SYRINGE 5ML IVP ONE (11:21)
[2025-09-27] MEDS ORDERED: MIDAZOLAM HCL 1 MG/ML 2ML VIAL IVPB ONE (11:27)
[2025-09-27] MEDS ORDERED: ALBUMIN (HUMAN) 5% 250 ML IV ONE (11:30)
[2025-09-27] MEDS: ALBUMIN (HUMAN) 5% 250 ML IV ONE ×2 (11:45→20:46)
[2025-09-27 11:49] LABS: BODY FLUID RBC 86 /cu. mm.; BODY FLUID WBC 52 /cu. mm.
[2025-09-27 11:51] LABS: ALBUMIN,BODY FLUID < 0.6 g/dL; APPEARANCE BODY FLUID SLIGHTLY CLOUDY (CLEAR); COLOR,BODY FLUID LT YELLOW (LT YELLOW); SPECIMENTYPE,BODY FLUID ASCITES; TOTAL PROTEIN,BODY FLUID < 2.0 g/dL
[2025-09-27 11:52] LABS: TOTAL VOLUME,BODY FLUID 6800 mL
[2025-09-27] MEDS ORDERED: LIDOCAINE HCL 1% MDV 50ML VIAL IJ ONE (12:24)
[2025-09-27 12:42] LABS: BF LYMPHOCYTE 50 %; BF MACROPHAGE 14; BF MESOTHELIAL 6 %; BF MONOCYTE 20 %; BF NEUTROPHIL 10.0 %; BF TOTAL CELLS COUNTED 100
[2025-09-27] MEDS ORDERED: IODIXANOL 320 MG/ML 100 ML VIAL IVP ONE ×2 (13:24→15:35)
--- NOTE | 2025-09-27 17:21 | HP ---
[facility] HISTORY & PHYSICAL Date Patient Seen: Sep 27, 2025 Time of Visit: 2029 Supervising Physician: [ Dr. Rocky Barillas] Primary Care Physician: [Dr. Priscila Shaffer ] Outpatient Specialists: [Dr. Orosco-GI] Inpatient Consults: [Dr. Edwards-GI ] PROBLEM LIST: S/p TIPS procedure-POA Anemia requiring blood transfusion (s/p 2 units of PRBC)-POA Ascites requiring paracentesis (6.8L)-POA Mild RONEN-POA Mild hyponatremia-POA Liver cirrhosis: Child-reyes score=8 points Class B; MELD-Na score -14 points=<2% est 90-day mortality-POA Angiodysplasia of stomach and duodenum Chronic constipation IBS 2nd degree hemorrhoids Diaphragmatic hernia Primary HTN T2DM Esophageal varices GERD Lactose intolerance Hypothyroidism PLAN: -Continue critical care management -Resume home meds, list faxed to the pharmacy -Resume Lactulose -Obtain RUQ US in am post-TIPS -Multimodal pain management -Maintain hemodynamic stability to keep MAP >65 -Monitor H&H q6H, transfuse if Hg drops below 7 -Avoid NSAIDs and blood thinners -Encourage high fiber diet, no heavy lifting until cleared by GI HPI: [Patient is 74-year-old female with PMH significant for nonalcoholic liver cirrhosis, DM, arthritis, IBS, hypothyroidism, angiodysplasia, esophageal varices and chronic anemia who is status post tips placement under the service o f Dr. Edwards. Patient was admitted for close monitoring to ICU. Patient received total of 2 units packed RBC and had a paracentesis done prior to procedure. At the time of my assessment, patient was seen and evaluated in ICU room 209, currently hemodynamically stable and in no acute distress. Patient denies any pain or discomfort with claims that she does not have the appetite to eat. Assessment was unrevealing with abdomen soft and nontender. Currently we will monitor her for possible complications as well as to ensure that hemoglobin is stabilized. Cause of care were discussed with the patient verbalizing understanding and agreement.] PAST MEDICAL HX: see above PAST SURGICAL HX: noncontributory SOCIAL HISTORY: No tobacco, ETOH, or illicit drug use Coded Allergies: No Known Allergies (Unverified Allergy, Unknown, 11/13/14) REVIEW OF SYSTEMS: 12 point ROS reviewed with patient. Pertinent positives mentioned above. Otherwise negative. PHYSICAL EXAM: GENERAL: alert, weak, awake oriented x 3 HEENT: EOMI, Sclera non icteric, moist mucosa NECK: Supple, no JVD, trachea midline LUNGS: Clear breath sounds bilaterally. No wheezes HEART: Regular rate and rhythm. Normal S1 and S2, without murmurs ABD: Abdomen soft and distended, otherwise nontender. Bowel sounds present EXT: No clubbing cyanosis, 2+ pitting edema on BLE NEURO: Alert and oriented to person, follows commands Vital Signs (last 8hr) Date Time Temp Pulse Resp B/P (MAP) Pulse Ox O2 Delivery O2 Flow Rate FiO2 09/27/25 12:00 71 14 108/50 96 Room Air 21 09/27/25 11:00 74 15 106/47 97 Room Air 21 09/27/25 10:00 72 15 108/44 99 Room Air 21 LABS: Hematology Labs: Test 09/27/25 11:23 Range/Units Hemoglobin 9.2 #L 12.0-16.0 g/dL Hematocrit 29.3 #L 36-48 % Chemistry Labs: Test 09/27/25 06:29 Range/Units Whole Blood Glucose 101 70-110 MG/DL DIAGNOSTICS / RADIOLOGY RESULTS: [ ] PLAN NEURO: Minimize central acting medications as possible. Fall Precautions. Well lighted room through the day and minimize interruptions through the night to prevent acute delirium. PULMONARY: Supplemental 02 as needed Titrate Fio2 to keep Spo2 > or = 90% DuoNebs and CPT as needed IS hourly while awake for pulmonary hygiene Out of bed to chair as tolerated VAP Bundle Vent/BIPAP Settings: [ ] Driving pressure: [ ] P Plat: [ ] Static C: [ ] Static R: [ ] P/F Ratio: [ ] CARDIOVASCULAR: Follow hemodynamics. Titrate vasopressor to keep MAP >65 or systolic blood pressure >95mmHg DRIPS: None ] LINES: [Left wrist A-line ] GI & NUTRITION: Continue nutritional support Aspirations precautions Prokinetic agents and laxatives as needed KIDNEYS & ELECTROLYTES: Strict monitoring of intake and output Daily weights Avoid nephrotoxic agents Monitor electrolytes and replace as needed Goal urine output of 30mL/hr or 0.5mL/kg/hr Urine output: [ ] Fluid Balance: [ ] ENDOCRINE: Maintain blood glucose between 100-180 at all times. Insulin sliding scale for blood glucose management INFECTIOUS DISEASE: Trend temperature. Batista-culture if febrile. Micro: [ ] Antibiotics: [ ] HEMATOLOGY & COAGULATION: Monitor H&H. Keep Hgb > 7 Transfuse 1 unit of PRBC for Hgb < 7 Transfuse 1 pack of platelets of platelets < 20, 000 Watch for any signs and symptoms of bleeding SKIN: Pressure ulcer prevention per facility protocol Rehab: PT/OT Prophylaxis: GI: [ ] DVT: [SCD, no AC due to s/p TIPS ] Code Status: Full Resuscitation Disposition: [Admitted in ICU ] Other: Total patient care time: 35 minutes [facility] Sep 27, 2025 17:21
[2025-09-27] MEDS ORDERED: DEXTROSE 50%-WATER 50 ML DISP.SYRIN IV PRN (19:00)
[2025-09-27] MEDS ORDERED: GLUCAGON 1MG KIT 1 MG ML IM PRN (19:00)
[2025-09-27] MEDS: SUGAMMADEX SODIUM 200 MG/2 ML VIAL IV ONE (20:46)
[2025-09-27] MEDS: MIDAZOLAM HCL 1 MG/ML 2ML VIAL IVP ONE (20:46)
[2025-09-27] MEDS: FAMOTIDINE 20MG VIAL IV ONE (20:46)
[2025-09-27] MEDS: LACTULOSE 20 GM/30 ML UDCUP PO SCH (21:16)
[2025-09-28] VITALS (11 sets, daily range): BP systolic 91–143; BP diastolic 32–55; PULSE 66–81; RESP 17–33; TEMP 97.7–97.8; O2SAT 90–98
--- NOTE | 2025-09-28 02:30 | CCATH ---
PROCEDURES PERFORMED: 1. Ultrasound-guided access of right internal jugular vein. 2. Angioportography. 3. Hepatic venography. 4. Balloon dilatation x 2 pre-stenting and x 3 post stenting. 5. Placement of Viatorr stent, 8 x 10 x 8 cm length. 6. Balloon angioplasty of percutaneous transjugular portography. 7. Transjugular intrahepatic portosystemic shunt. 8. Portal pressure measurement pre and post TIPS procedure. PROCEDURE DETAILS: This is a 75-year-old female referred for TIPS procedure for portal hypertension. The risks and benefits were explained to the patient. The risks include hematoma, liver laceration, vessel injury, and possible hemothorax. The patient consented to the procedure. After sterile prep and drape, using a right femoral arterial approach, a 5-Stateless C2 catheter was placed into the splenic artery and splenic portography was performed. The study demonstrates the splenic artery is patent. The liver is very small and cirrhotic. The portal vein, the intrahepatic and extrahepatic veins are patent landmark. There was no varices identified. Under ultrasound guidance, after 1% Xylocaine used for local anesthetic, the right internal jugular vein was accessed with micropuncture kit. A 9-Stateless 45 cm sheath was introduced and hepatic venography was performed. The study demonstrated the right hepatic vein appears to be patent. Using a 16-gauge Col[place]into needle with multiple punctures the portal vein was accessed. The pressure gradient of portal vein after placement of a 5-Stateless C2 catheter was 25 mmHg. The intrahepatic tract was dilated using an EverCross balloon, which was dilated x 2. Over an angiographic wire and sheath, a Viatorr stent 8 x 10 mm diameter x 8 cm was deployed. The entire length was angioplastied using EverCross 8 x 60 mm balloon catheter. Post placement of a stent, the portography pressure, mean pressure is 16. Final portography demonstrates the portal vein and its branches are patent. The contrast readily flows into the heart without any obstruction. The patient tolerated the procedure well. IMPRESSION: Percutaneous placement of intrahepatic portosystemic stent using Viatorr stent, which appears to be in satisfactory position. There are no varices identified and the portal pressure has decreased from 25 to 16 mmHg. RECOMMENDATIONS: I would recommend the patient come back in 24 hours for followup sonogram for TIPS shunt and evaluation in 1 month, then every 3 months to see the patency of the shunt. Thank you for this referral. TID: [id number] RECEIPT: [id number] MTDD
[2025-09-28 04:15] LABS: IMMATURE GRANULOCYTE ABSOLUTE 0.05 K/uL (0-1); NUCLEATED RED BLOOD CELLS 0.0 % (0.0-0.19); PLATELET COUNT (AUTO) 267 K/uL (130-400); RED BLOOD CELL COUNT(AUTO) 3.02 MIL/uL (4.00-5.50); RED CELL DISTRIBUTION WIDTH 18.1 % (11.0-15.5); WHITE BLOOD COUNT (AUTO) 11.3 K/uL (4.8-10.8)
[2025-09-28 04:28] LABS: INR 1.15 (0.85-1.15)
[2025-09-28 04:29] LABS: CREATININE 0.9 mg/dL (0.5-1.0); GLOMERULAR FILTR. RATE CALC 68.0 mL/min (>90); GLUCOSE,RANDOM 70.0 mg/dL (70-105); PHOSPHORUS 2.5 mg/dL (2.5-4.9); SODIUM SERUM 137.0 mmol/L (136-145); UREA NITROGEN, BLOOD 26.0 mg/dL (7-18)
[2025-09-28] MEDS: SPIRONOLACTONE 25 MG TAB PO SCH (08:17)
[2025-09-28] MEDS: CYANOCOBALAMIN (VITAMIN B-12) 1,000 MCG TABLET PO SCH (08:17)
[2025-09-28] MEDS: FERROUS SULFATE 325 MG TABLET.DR PO SCH (08:17)
[2025-09-28] MEDS: PSYLLIUM SEED 1 EACH PACKET PO SCH (08:18)
--- NOTE | 2025-09-28 08:18 | NUR ---
Dr. Edwards at bedside evaluating patient. Per MD, patient can discharge home with follow up in 1 month with [facility] for doppler.
--- NOTE | 2025-09-28 08:45 | NUR ---
left radial arterial line discontinued. Pressure applied. Hemostasis achieved. Gauze and tegaderm dressing applied.
--- NOTE | 2025-09-28 08:46 | DS ---
[facility] DISCHARGE SUMMARY Date Patient Seen: Sep 28, 2025 Time of Visit: 08:44 Supervising Physician: Dr Rocky Barillas Primary Care Physician: [Dr. Priscila Shaffer ] Outpatient Specialists: [Dr. Orosco-GI] Inpatient Consults: [Dr. Edwards-GI ] PROBLEM LIST: S/p TIPS procedure-POA Anemia requiring blood transfusion (s/p 2 units of PRBC)-POA Ascites requiring paracentesis (6.8L)-POA Mild RONEN-POA Mild hyponatremia-POA Liver cirrhosis: Child-reyes score=8 points Class B; MELD-Na score -14 points=<2% est 90-day mortality-POA Angiodysplasia of stomach and duodenum Chronic constipation IBS 2nd degree hemorrhoids Diaphragmatic hernia Primary HTN T2DM Esophageal varices GERD Lactose intolerance Hypothyroidism HOSPITAL COURSE: HPI [Patient is 74-year-old female with PMH significant for nonalcoholic liver cirrhosis, DM, arthritis, IBS, hypothyroidism, angiodysplasia, esophageal varices and chronic anemia who is status post tips placement under the service of Dr. Edwards. Patient was admitted for close monitoring to ICU. Patient received total of 2 units packed RBC and had a paracentesis done prior to procedure. At the time of my assessment, patient was seen and evaluated in ICU room 209, currently hemodynamically stable and in no acute distress. Patient denies any pain or discomfort with claims that she does not have the appetite to eat. Assessment was unrevealing with abdomen soft and nontender. Currently we will monitor her for possible complications as well as to ensure that hemoglobin is stabilized. Cause of care were discussed with the patient verbalizing understanding and agreement.] The patient was treated for the following problems: ACTIVE PROBLEM LIST FOR THE HOSPITALIZATION: CHRONIC PROBLEMS: continue previous management per PCP unless otherwise indicated DIVISION SUPERVISOR FINDINGS/RECOMMENDATIONS: [ ] PROCEDURES: TIPS DISCHARGE MEDICATIONS: To resume home meds No medication changes, no new medications. Pt hemodynamically stable and afebrile at time of discharge. PCP notified of patients admission, hospital course and discharge. PHYSICAL EXAM: GENERAL: alert, awake oriented x 3 HEENT: EOMI, Sclera non icteric, moist mucosa NECK: Supple, no JVD, trachea midline LUNGS: Clear breath sounds bilaterally. No wheezes HEART: Regular rate and rhythm. Normal S1 and S2, without murmurs ABD: Abdomen soft and distended, otherwise nontender. Bowel sounds present EXT: No clubbing cyanosis, 2+ pitting edema on BLE NEURO: Alert and oriented to person, follows commands FOLLOW-UP: Patient to follow-up with her primary in the next 2-3 days She has a follow-up appointment on the . [facility] for repeat ultrasound and a paracentesis RECOMMENDATIONS: See Discharge Instructions Return precautions This case was seen and discussed with my supervising physician. More than 30 minutes spent on discharge process, including evaluation of the patient, discussion with nursing staff, medication reconciliation and follow-up appointments ONI VELÁZQUEZ PAC Sep 28, 2025 08:46
--- NOTE | 2025-09-28 09:29 | HMCIMG ---
US ABDOMINAL PARACENTESIS IR REASON: ASCITES TECHNIQUE: Paracentesis was performed with ultrasound guidance. The puncture site was selected in the Right lower quadrant and overlying skin prepped and draped in a sterile fashion. 1% Xylocaine infiltration was performed. Catheter was placed in the fluid using trocar technique. 6.8 were removed. Fluid sample was submitted for laboratory evaluation. The patient showed no evidence of complication during the procedure. Patient tolerated procedure well. IMPRESSION: 1. Ultrasound-guided paracentesis.
--- NOTE | 2025-09-28 10:09 | HMCIMG ---
US ABDOMEN CMP W DOPPLERS INDICATION: POST TIPS TECHNIQUE: Ultrasound of the abdomen. Doppler evaluation of upper abdominal vessels FINDINGS: Liver: The liver is small and cirrhotic in appearance with coarse echotexture.. The hepatic vein diameter is 1.2 cm. There is hepatopedal flow. The portal vein velocity is 32 cm/s. There is a TIPS shunt which is placed 24 hours ago which appears to be patent the proximal velocity is 89 cm/s. The mid TIPS velocities 100 cc of per second and distal TIPS velocities 106 cm/s. Normal velocity is between 9290 cm/s. Gallbladder: Surgically unremarkable. CBD: 0.4 cm. Portal vein: Patent with normal flow direction. Kidneys: Normal size, shape and echogenicity. Right kidney measures 9 x 3.6 x 4.4 cm cm in length. The right kidney appears to be echogenic suggesting of possible medical renal disease Left kidney is obscured. Pancreas: Grossly normal. Spleen: Unremarkable and measures 11.5 cm. Aorta: 2.0 cm. IVC: Unremarkable. There is no free fluid. Suprahepatic veins: Patent - hepatofugal flow. Splenic vein: Patent - hepatopetal flow the splenic vein velocity is 33 cm/s.. Main, right and left portal veins: Patent - hepatopetal flow. Hepatic artery: Unremarkable. IMPRESSION: Status post TIPS with patent TIPS shunt with velocities as described above and flows towards the heart. Patent splenic, portal and suprahepatic veins with normal flow direction. Cirrhosis of the liver. I would recommend patient return in one month post TIPS and after that every 3 months.
[2025-10-06] MEDS ORDERED: SUCR1TAB28 PO (07:33)
[2025-10-06] MEDS ORDERED: LOSA50TA64 PO (07:33)
[2025-10-06] MEDS ORDERED: METO5TAB87 PO (07:33)
[2025-10-06] MEDS ORDERED: CARV3.12 PO (07:33)
== END 2025-09-28 10:00 | disposition home or self-care (01) ==
LOC: DAH 06:01 → DAHIP 06:02 → INTOOBSV 06:02 → 2BH 16:47
PROVIDERS: ADMIT Internal Medicine Critical Care Medicine; ATTEND Internal Medicine Critical Care Medicine
DX: R18.8 Other ascites (principal); D64.9 Anemia, unspecified; E87.1 Hypo-osmolality and hyponatremia; K74.60 Unspecified cirrhosis of liver; K31.819 Angiodysplasia of stomach and duodenum without bleeding; K44.9 Diaphragmatic hernia without obstruction or gangrene; I10 Essential (primary) hypertension; I85.10 Secondary esophageal varices without bleeding; K21.9 Gastro-esophageal reflux disease without esophagitis; K64.1 Second degree hemorrhoids; N17.9 Acute kidney failure, unspecified; E11.9 Type 2 diabetes mellitus without complications; E03.9 Hypothyroidism, unspecified; E73.9 Lactose intolerance, unspecified; K58.1 Irritable bowel syndrome with constipation; Z79.899 Other long term (current) drug therapy; Z98.890 Other specified postprocedural states
CPT/HCPCS: 80053; 85025 ×2; 85610 ×2; 85730; 86850; 86900; 86922 ×3; 86901; 36415 ×3; 93005; 37182; 36430; 84157; 89051; 85014 ×2; 85018 ×2; 87071; 87076; 87205; 82948 ×2; 82042; 88108; 88305; 49083; 96374; 83735; 84100; 80048; 82140; 76700; 93975; C1874; C1887 ×3; C1769 ×5; C1894 ×3; C1758; C1760 ×2; C1725; P9016 ×2; P9045 ×2; J1308; J3010; J1100; J0330; J3490 ×5; J2003; J2250; J2704; J2405; J2710; J1644 ×3; J2371; Q9967 ×2; C1729; A4215; A4223 ×3; A4554; A4335; A4222; A4221; A4663; A4216; A4606; G0378; J2470; 96365